=== PATIENT | male | born 1985 | race Caucasian/White ===

== ENCOUNTER 2016-07-16 03:12 | Emergency (ER) | payer BC, MEDICAID, OTHER ==
[2016-07-16] MEDS ORDERED: ONDANSETRON 4MG/2ML VIAL (J2405) As Ordered ONE (03:36)
[2016-07-16] MEDS ORDERED: MORPHINE 4 MG/ML 1ML SYRINGE As Ordered ONE (03:36)
[2016-07-16 03:46] LABS: BASO % 0.4 % (0.0-1.0); EOS # 0.1 K/mm3 (0.0-0.50); EOS % 1.1 % (0.0-3.0); LARGE UNSTAINED CELL # 0.2 K/mm3 (0.0-0.4); LARGE UNSTAINED CELL % 1.9 % (0.0-4.0); LYMPH # 1.2 K/mm3 (1.5-4.5); LYMPH % 10.5 % (24.0-44.0); MEAN CORPUSCULAR HEMOGLOBIN 28.9 pg (27.0-33.0); MEAN CORPUSCULAR HGB CONC 33.7 g/dl (32.0-36.5); MEAN CORPUSCULAR VOLUME 85.7 fl (80.0-96.0); MONO # 0.4 K/mm3 (0.0-0.8); MONO % 3.4 % (0.0-5.0); NEUTROPHILS # 9.3 K/mm3 (1.8-7.7); NEUTROPHILS % 82.6 % (36.0-66.0); PLATELET COUNT, AUTOMATED 292 k/mm3 (150-450); RED CELL DISTRIBUTION WIDTH 12.2 % (11.5-14.5); WHITE BLOOD COUNT 11.2 K/mm3 (4.0-10.0)
[2016-07-16 03:55] LABS: ALBUMIN 4.1 GM/DL (3.2-5.2); ALBUMIN/GLOBULIN RATIO 1.24 (1.00-1.93); ALKALINE PHOSPHATASE 78 U/L (45-117); ALT/SGPT 27 U/L (12-78); AMYLASE 41 U/L (25-115); ANION GAP 11 MEQ/L (8-16); AST/SGOT 13 U/L (15-37); BILIRUBIN,DIRECT < 0.1 MG/DL (0.0-0.2); BILIRUBIN,TOTAL 0.5 MG/DL (0.2-1.0); BLOOD UREA NITROGEN 15 MG/DL (7-18); CARBON DIOXIDE LEVEL 29 MEQ/L (21-32); CHLORIDE LEVEL 107 MEQ/L (98-107); CREATININE FOR GFR 1.43 MG/DL (0.70-1.30); GLOMERULAR FILTRATION RATE > 60.0 (>60); GLUCOSE, FASTING 144 MG/DL (70-105); POTASSIUM SERUM 3.8 MEQ/L (3.5-5.1); SODIUM LEVEL 147 MEQ/L (136-145); TOTAL PROTEIN 7.4 GM/DL (6.4-8.2)
[2016-07-16] MEDS ORDERED: ISOVUE-370 76% 100ML VIAL (Q9967) As Ordered ONE (04:09)
--- NOTE | 2016-07-16 05:20 | REPUSA ---
CLINICAL HISTORY: Abdominal pain. TECHNIQUE: Multiple axial, sagittal and coronal CT images were obtained through the abdomen and pelvi s after administration of intravenous contrast material. COMMENTS: The liver is of uniform attenuation without mass or defect. There is no intra or extrahepatic biliary ductal dilatation. The spleen is normal. The gallbladder is within normal limits. The pancreas is of normal contour and attenuation characteristics. There is no evidence of adrenal mass. Bilateral renal stones ranging in size between 3 and 6 mm. 4 mm obstructing calculus of the left uret erovesical junction. Mild left hydroureteronephrosis. No evidence for appendicitis. There is no bowel wall thickening. No evidence for small or large guru l obstruction. There is no evidence of abdominal ascites or lymphadenopathy. Mild diffuse thickening of the wall of the bladder. There is no evidence of intrinsic or extrinsic bladder mass. Mild thickening of the bladder. There is no pelvic ascites or lymphadenopathy. Mild large bowel fecal stasis. Images of the lung bases show no evidence of pleural or parenchymal mass. There are no pleural effusi ons. The bony structures are free of lytic or blastic lesions. Multilevel degenerative changes are seen in volving the thoracolumbar spine. Scattered calcifications are seen involving the aorta and major bran ches compatible with atherosclerosis. IMPRESSION: Bilateral nephrolithiasis. Obstructing calculus of the left ureterovesical junction. Mild thickening of the bladder. Thank you for your kind referral of this patient.
[2016-07-16] MEDS ORDERED: TAMSULOSIN 0.4 MG CAP As Ordered ONE (07:40)
[2016-07-16] MEDS ORDERED: OXYCODONE/APAP 5MG/325MG(BULK) 1 TAB TAB As Ordered ONE (07:41)
--- NOTE | 2016-07-16 07:58 | EDDOCDS ---
Nurse's Notes [facility] Name: Thomas Ndiaye Age: 30 yrs Sex: Male : 1985 Arrival Date: 07/16/2016 Time: 03:12 Bed 7 Private MD: NO PRIMARY PHYSICIAN, . Diagnosis: Calculus of ureter Presentation: 07/16 03:15 Presenting complaint: EMS states: onset of severe abdominal pain 3 hours ago, reports af2 constipation for a few days. Risk factors: the patient reports not having a history of previous torsion. Adult Sepsis Screening: The patient does not have new or worsening altered mentation. Patient has a respiratory rate of greater than or equal to 22 (1 point). Systolic blood pressure is greater than 100. Patient has a qSOFA score of 1- Negative Sepsis Screen. Suicide/Homicide risk assessment- the patient denies having any suicidal and/or homicidal ideations and does not present with any other emotional, behavioral or mental health complaints. Status: Patient is not a claim service representative or dependent. Transition of care: patient was not received from another setting of care. 03:15 Acuity: KHUSHBU Level 3 af2 03:15 Method Of Arrival: Ambulance af2 Triage Assessment: 03:43 General: Appears distressed, uncomfortable, Behavior is anxious. Pain: Location: af2 abdomen Pain currently is 10 out of 10 on a pain scale. Pt Declines HIV testing. GI: Abdomen is distended, Bowel sounds present X 4 quads. Abd is rigid X 4 quads. Derm: Skin is pink, warm & dry. Historical: - Allergies: No known drug Allergies; - Home Meds: 1. none - PMHx: none; - PSHx: none; - Social history: Smoking status: Patient states was never smoker of tobacco. No barriers to communication noted, The patient speaks fluent Polish. - Family history: Not pertinent. - : The pt / caregiver states he / she is not on anticoagulants. Home medication list is obtained from the patient. - Exposure Risk Screening:: None identified. Screenin:21 Screening information is obtained from the patient. Fall risk: No risks identified. af2 Assistance ADL's: requires no assistance with activities of daily living. Abuse/DV Screen: The patient / caregiver reports he/she is: not in a situation that causes fear, pain or injury. Nutritional screening: No deficits noted. Advance Directives: Currently, there is no health care proxy. home support is adequate. Assessment: 03:44 General: see triage note.. af2 04:45 General: Appears comfortable, Behavior is cooperative. Pain: Location: abdomen Pain af2 currently is 4 out of 10 on a pain scale. Neurological: Level of Consciousness is awake, alert, obeys commands. Respiratory: Airway is patent Respiratory effort is even, unlabored. GI: Abdomen is non- distended Bowel sounds present X 4 quads. Reports constipation, lower abdominal pain, upper abd pain. Derm: Skin is normal. 05:45 General: Appears in no apparent distress, comfortable, Behavior is appropriate for age, af2 cooperative. Neurological: Level of Consciousness is awake, alert, obeys commands, Oriented to person, place, time. Respiratory: Airway is patent Respiratory effort is even, unlabored. GI: Reports constipation, lower abdominal pain, upper abd pain. Derm: Skin is normal. 06:22 General: Appears in no apparent distress, comfortable, Behavior is appropriate for age, af2 cooperative, pt lying on stretcher resting quietly with eyes closed. rr even and unlabored. updated regarding need for urine specimen. . 07:29 General: Appears in no apparent distress, comfortable, Behavior is appropriate for age, ck1 cooperative. Pain: Denies pain. Neurological: Level of Consciousness is awake, alert, obeys commands, Oriented to person, place, time. Respiratory: Respiratory effort is even, unlabored, Respiratory pattern is regular, symmetrical. GI: Denies nausea, vomiting. Derm: Skin is pink, warm & dry. 07:50 General: Appears in no apparent distress, comfortable, Behavior is appropriate for age, ck1 cooperative. Pain: Denies pain. Neurological: Level of Consciousness is awake, alert, obeys commands, Oriented to person, place, time. Respiratory: No deficits noted. GI: No deficits noted. Denies nausea, vomiting. : Denies burning with urination, inability to void, urinary frequency. Derm: Skin is pink, warm & dry. Musculoskeletal: Circulation, motion, and sensation intact Range of motion intact in all extremities. Vital Signs: 03:18 BP 133 / 70; Pulse 74; Resp 20; Temp 96.2(O); Pulse Ox 97% on R/A; Weight 77.11 kg (R); jmv Height 5 ft. 6 in. (167.64 cm) (R); Pain 10/10; 06:24 BP 131 / 58; Pulse 61; Resp 18 S; Temp 97.5(O); Pulse Ox 100% on R/A; af2 07:48 BP 108 / 65; Pulse 94; Resp 18; Temp 96.8(T); Pulse Ox 98% on R/A; Pain 0/10; ck1 03:18 Body Mass Index 27.44 (77.11 kg, 167.64 cm) [facility] ED Course: 03:14 Shoshana Uribe,RN is Primary Nurse. [facility] 03:14 Patient visited by Paula Sarmiento, Tank Assembler. [facility] 03:14 NO PRIMARY PHYSICIAN, . is Private Physician. [facility] 03:14 Patient moved to [facility] 03:18 Triage Initiated af2 03:20 Pt greeted and oriented to ED. Patient advised of names of staff involved in care, [facility] location of call payne, wait times and NPO status. Patient has correct armband on for positive identification. Placed in gown. Bed in low position. Call light in reach. Side rails up X2. Pulse ox on. NIBP on. 03:21 Patient visited by Tyson Marcum PCA. [facility] 03:24 Dale Bravo DO is Attending Physician. mm11 03:24 Patient visited by Dale Bravo DO. mm11 03:26 Inserted saline lock: 20 gauge in left antecubital area and blood collected. lf1 03:31 Patient visited by Dale Bravo DO. mm11 03:33 Liver Profile Sent. af2 03:33 Lipase Sent. af2 03:33 CBC with Diff Sent. af2 03:33 Basic Metabolic Profile Sent. af2 03:33 Amylase Sent. af2 03:44 Patient visited by Shoshana Uribe RN. af2 03:44 The patient / caregiver is instructed regarding the plan of care and ED course. af2 04:34 Patient name changed from Thomas\S\R\S\Senthil\S\ to Thomas\S\Jean\S\Senthil. EDMS 04:35 [facility] [place] was scanned into [employer] and attached to record. [facility] 05:08 Patient visited by Shoshana Uribe RN. af2 05:46 CT ABD & PELVIS: IV Contrast Only Returned. EDMS 06:09 Patient visited by Shoshana Uribe RN. af2 06:23 Patient visited by Shoshana Uribe RN. af2 06:25 Patient visited by Shoshana Uribe RN. af2 06:55 Patient visited by Shoshana Uribe RN. af2 06:57 Oanh Ramirez,RN is Primary Nurse. ck1 07:15 Primary Nurse role handed off by Shoshana Uribe RN mcp 07:19 Patient visited by Nani Benjamin PCA. jlf 07:19 Urine Culture Sent. jlf 07:19 UA Sent. jlf 07:29 Patient visited by Oanh Ramirez,KEKE. ck1 07:30 No procedures done that require assistance. ck1 07:36 [facility] is Referral Physician. mm11 07:48 Discontinued lock intact, bleeding controlled, pressure dressing applied, No ck1 redness/swelling at site. Administered Medications: 03:41 Drug: NS 0.9% 1000 ml [sodium chloride 0.9 % intravenous solution] Route: IV; Rate: af2 bolus; Site: left antecubital; 07:34 Follow up: IV Status: Completed infusion ck1 03:42 Drug: Ondansetron 4 mg [ondansetron HCl 2 mg/mL intravenous solution (2 mL)] Route: af2 IVP; Site: left antecubital; 03:42 Drug: morphine 4 mg [morphine 4 mg/mL intravenous cartridge (1 mL)] Route: IVP; Site: af2 left antecubital; 07:47 Drug: Tamsulosin 0.4 mg [tamsulosin 0.4 mg capsule (1 caps)] Route: PO; ck1 07:47 Drug: oxyCODONE-acetaminophen 4 pack 1 packets [oxycodone-acetaminophen 5 mg-325 mg ck1 tablet (1 tabs)] {Co-Signature: mlb1 (Gaetano Merritt RN).} Route: PO; Order Results: Lab Order: Amylase; SPEC'M 07/16/16 03:28 Test: AMYLASE; Value: 41; Range: 25-115; Units: U/L; Status: F Lab Order: Basic Metabolic Profile; SPEC'M 07/16/16 03:28 Test: GLUCOSE, FASTING; Value: 144; Range: 70-105; Abnormal: Above high normal; Units: MG/DL; Status: F Test: BLOOD UREA NITROGEN; Value: 15; Range: 7-18; Units: MG/DL; Status: F Test: CREATININE FOR GFR; Value: 1.43; Range: 0.70-1.30; Abnormal: Above high normal; Units: MG/DL; Status: F Test: GLOMERULAR FILTRATION RATE; Value: > 60.0; Range: >60; Status: F Test: SODIUM LEVEL; Value: 147; Range: 136-145; Abnormal: Above high normal; Units: MEQ/L; Status: F Test: POTASSIUM SERUM; Value: 3.8; Range: 3.5-5.1; Units: MEQ/L; Status: F Test: CHLORIDE LEVEL; Value: 107; Range: 98-107; Units: MEQ/L; Status: F Test: CARBON DIOXIDE LEVEL; Value: 29; Range: 21-32; Units: MEQ/L; Status: F Test: ANION GAP; Value: 11; Range: 8-16; Units: MEQ/L; Status: F Test: CALCIUM LEVEL; Value: 9.0; Range: 8.5-10.1; Units: MG/DL; Status: F Test Note: ; Units are mL/min/1.73 m2 Chronic Kidney Disease Staging per NKF: Stage I & II GFR >=60 Normal to Mildly Decreased Stage III GFR 30-59 Moderately Decreased Stage IV GFR 15-29 Severely Decreased Stage V GFR <15 Very Little GFR Left ESRD GFR <15 on MAILING MANAGER Lab Order: CBC with Diff; SPEC'M 07/16/16 03:28 Test: WHITE BLOOD COUNT; Value: 11.2; Range: 4.0-10.0; Abnormal: Above high normal; Units: K/mm3; Status: F Test: RED BLOOD COUNT; Value: 5.08; Range: 4.30-6.10; Units: M/mm3; Status: F Test: HEMOGLOBIN; Value: 14.7; Range: 14.0-18.0; Units: g/dl; Status: F Test: HEMATOCRIT; Value: 43.6; Range: 42.0-52.0; Units: %; Status: F Test: MEAN CORPUSCULAR VOLUME; Value: 85.7; Range: 80.0-96.0; Units: fl; Status: F Test: MEAN CORPUSCULAR HEMOGLOBIN; Value: 28.9; Range: 27.0-33.0; Units: pg; Status: F Test: MEAN CORPUSCULAR HGB CONC; Value: 33.7; Range: 32.0-36.5; Units: g/dl; Status: F Test: RED CELL DISTRIBUTION WIDTH; Value: 12.2; Range: 11.5-14.5; Units: %; Status: F Test: PLATELET COUNT, AUTOMATED; Value: 292; Range: 150-450; Units: k/mm3; Status: F Test: NEUTROPHILS %; Value: 82.6; Range: 36.0-66.0; Abnormal: Above high normal; Units: %; Status: F Test: LYMPH %; Value: 10.5; Range: 24.0-44.0; Abnormal: Below low normal; Units: %; Status: F Test: MONO %; Value: 3.4; Range: 0.0-5.0; Units: %; Status: F Test: EOS %; Value: 1.1; Range: 0.0-3.0; Units: %; Status: F Test: BASO %; Value: 0.4; Range: 0.0-1.0; Units: %; Status: F Test: LARGE UNSTAINED CELL %; Value: 1.9; Range: 0.0-4.0; Units: %; Status: F Test: NEUTROPHILS #; Value: 9.3; Range: 1.8-7.7; Abnormal: Above high normal; Units: K/mm3; Status: F Test: LYMPH #; Value: 1.2; Range: 1.5-4.5; Abnormal: Below low normal; Units: K/mm3; Status: F Test: MONO #; Value: 0.4; Range: 0.0-0.8; Units: K/mm3; Status: F Test: EOS #; Value: 0.1; Range: 0.0-0.50; Units: K/mm3; Status: F Test: BASO #; Value: 0.0; Range: 0.0-0.2; Units: K/mm3; Status: F Test: LARGE UNSTAINED CELL #; Value: 0.2; Range: 0.0-0.4; Units: K/mm3; Status: F Lab Order: Lipase; SPEC'M 07/16/16 03:28 Test: LIPASE; Value: 145; Range: 73-393; Units: U/L; Status: F Lab Order: Liver Profile; SPEC'M 07/16/16 03:28 Test: AST/SGOT; Value: 13; Range: 15-37; Abnormal: Below low normal; Units: U/L; Status: F Test: ALT/SGPT; Value: 27; Range: 12-78; Units: U/L; Status: F Test: ALKALINE PHOSPHATASE; Value: 78; Range: 45-117; Units: U/L; Status: F Test: BILIRUBIN,TOTAL; Value: 0.5; Range: 0.2-1.0; Units: MG/DL; Status: F Test: BILIRUBIN,DIRECT; Value: < 0.1; Range: 0.0-0.2; Units: MG/DL; Status: F Test: TOTAL PROTEIN; Value: 7.4; Range: 6.4-8.2; Units: GM/DL; Status: F Test: ALBUMIN; Value: 4.1; Range: 3.2-5.2; Units: GM/DL; Status: F Test: ALBUMIN/GLOBULIN RATIO; Value: 1.24; Range: 1.00-1.93; Status: F Lab Order: UA; SPEC'M 07/16/16 07:17 Test: APPEARANCE, URINE; Value: CLEAR; Range: CLEAR; Status: F Test: COLOR, URINE; Value: STRAW; Range: YELLOW; Status: F Test: PH,URINE; Value: 7.0; Range: 5.0-9.0; Units: UNITS; Status: F Test: SPECIFIC GRAVITY URINE AUTO; Value: 1.035; Range: 1.002-1.035; Status: F Test: PROTEIN, URINE AUTO; Value: NEGATIVE; Range: NEGATIVE; Units: mg/dL; Status: F Test: GLUCOSE, URINE (UA) AUTO; Value: NEGATIVE; Range: NEGATIVE; Units: mg/dL; Status: F Test: KETONE, URINE AUTO; Value: NEGATIVE; Range: NEGATIVE; Units: mg/dL; Status: F Test: UROBILINOGEN, URINE AUTO; Value: 0.2; Range: 0.0-2.0; Units: mg/dL; Status: F Test: BILIRUBIN, URINE AUTO; Value: NEGATIVE; Range: NEGATIVE; Status: F Test: NITRITE, URINE AUTO; Value: NEGATIVE; Range: NEGATIVE; Status: F Test: LEUKOCYTE ESTERASE, URINE AUTO; Value: NEGATIVE; Range: NEGATIVE; Status: F Test: BLOOD, URINE BLOOD; Value: NEGATIVE; Range: NEGATIVE; Status: F Test: WBC, URINE AUTO; Value: 1; Range: 0-3; Units: /HPF; Status: F Test: RBC, URINE AUTO; Value: 2; Range: 0-3; Units: /HPF; Status: F Test: BACTERIA, URINE AUTO; Value: 1+; Range: NEGATIVE; Abnormal: Above high normal; Status: F Test: SQUAMOUS EPITHELIAL CELL UR AU; Value: 0; Range: 0-6; Units: /HPF; Status: F Test: HYALINE CAST, URINE AUTO; Value: 0; Range: 0-1; Units: /LPF; Status: F Radiology Order: CT ABD & PELVIS: IV Contrast Only Test: CT ABD & PELVIS: IV Contrast Only REASON FOR EXAMINATION: Abdomen Pain; ; CLINICAL HISTORY: Abdominal pain.; TECHNIQUE: Multiple axial, sagittal and coronal CT images were obtained through the abdomen and pelvi; s after administration of intravenous contrast material.; COMMENTS:; The liver is of uniform attenuation without mass or defect. There is no intra or extrahepatic biliary; ductal dilatation. The spleen is normal. The gallbladder is within normal limits. The pancreas is of; normal contour and attenuation characteristics. There is no evidence of adrenal mass.; Bilateral renal stones ranging in size between 3 and 6 mm. 4 mm obstructing calculus of the left uret; erovesical junction. Mild left hydroureteronephrosis.; No evidence for appendicitis. There is no bowel wall thickening. No evidence for small or large guru; l obstruction. There is no evidence of abdominal ascites or lymphadenopathy. Mild diffuse thickening; of the wall of the bladder.; There is no evidence of intrinsic or extrinsic bladder mass. Mild thickening of the bladder. There is; no pelvic ascites or lymphadenopathy. Mild large bowel fecal stasis.; Images of the lung bases show no evidence of pleural or parenchymal mass. There are no pleural effusi; ons.; The bony structures are free of lytic or blastic lesions. Multilevel degenerative changes are seen in; volving the thoracolumbar spine. Scattered calcifications are seen involving the aorta and major bran; ches compatible with atherosclerosis.; IMPRESSION:; Bilateral nephrolithiasis.; Obstructing calculus of the left ureterovesical junction.; Mild thickening of the bladder.; Thank you for your kind referral of this patient.; ; Outcome: 07:30 CT Study completed. ck1 07:36 Discharge ordered by Provider. mm11 07:47 Discharge Assessment: Patient awake, alert and oriented x 3. No cognitive and/or ck1 functional deficits noted. Patient verbalized understanding of disposition instructions. patient administered narcotics - yes. Pt provided with safe discharge. The following High Risk Discharge criteria are identified: None. Discharged to home ambulatory, with parent. Condition: improved. Discharge instructions given to patient, Instructed on discharge instructions, follow up and referral plans. medication usage, Demonstrated understanding of instructions, medications, Pt was receptive of discharge instructions/ teaching. Property :Personal belongings accompany Pt. 07:50 Prescriptions given X 2. ck1 07:56 Patient left the ED. ck1 Signatures: Dispatcher [employer] EDMS Larissa James, RN KEKE [facility] Oanh RamirezRN RN ck1 Zahida Avalos,RN RN lf1 Dale Bravo, DO mm11 Nani Benjamin, PSYCHIATRIC REGISTERED NURSE PSYCHIATRIC REGISTERED NURSE jlf Paula Sarmiento, Tank Assembler Unit Bharati Lees AmberRN RN af2 Tyson Marcum, PSYCHIATRIC REGISTERED NURSE PSYCHIATRIC REGISTERED NURSE [facility] Gaetano Merritt RN mlb1 MTDD
--- NOTE | 2016-07-16 07:58 | EDDOCDS ---
Physician Documentation [facility] Name: Thomas Ndiaye Age: 30 yrs Sex: Male : 1985 Arrival Date: 07/16/2016 Time: 03:12 Bed 7 Private MD: NO PRIMARY PHYSICIAN, . Disposition: 07/16/16 07:36 Discharged to Home/Self Care. Impression: Calculus of ureter. - Condition is Stable. - Discharge Instructions: Kidney Stones, Ureteral Colic, Ureteral Colic, Ydmo-lo-Soye, Kidney Stones, Ynnw-mc-Lism. - Prescriptions for Percocet 5- 325 mg Oral Tablet - take 1 tablet by ORAL route every 6 hours As needed MDD: 4 tabs; 20 tablet. Flomax 0.4 mg Oral Capsule, Sust. Release 24 hr - take 1 capsule by ORAL route once daily 1/2 hour following the same meal each day; 30 capsule. - Medication Reconciliation, Local Pharmacy Hours form. - Follow up: [facility]; When: Call to arrange an appointment; Reason: To establish care. - Problem is an acute exacerbation. - Symptoms have improved. Historical: - Allergies: No known drug Allergies; - Home Meds: 1. none - PMHx: none; - PSHx: none; - Social history: Smoking status: Patient states was never smoker of tobacco. No barriers to communication noted, The patient speaks fluent Yi. - Family history: Not pertinent. - : The pt / caregiver states he / she is not on anticoagulants. Home medication list is obtained from the patient. - Exposure Risk Screening:: None identified. Vital Signs: 07/16 03:18 BP 133 / 70; Pulse 74; Resp 20; Temp 96.2(O); Pulse Ox 97% on R/A; Weight 77.11 kg / jmv 170 lbs (R); Height 5 ft. 6 in. (167.64 cm) (R); Pain 10/10; 06:24 BP 131 / 58; Pulse 61; Resp 18 S; Temp 97.5(O); Pulse Ox 100% on R/A; af2 07:48 BP 108 / 65; Pulse 94; Resp 18; Temp 96.8(T); Pulse Ox 98% on R/A; Pain 0/10; ck1 03:18 Body Mass Index 27.44 (77.11 kg, 167.64 cm) [facility] MDM: 03:31 NS 0.9% 1000 ml IV at bolus once ordered. mm11 03:31 Ondansetron 4 mg IVP once ordered. mm11 03:31 morphine 4 mg IVP every 30 minutes; Document pain score/vitals after each dose (Hold if mm11 SBP < 90mmHg) x2 ordered. 03:31 IV Saline Lock ordered. mm11 03:31 Undress patient appropriately for examination ordered. mm11 03:33 Amylase Ordered. EDMS 03:33 Basic Metabolic Profile Ordered. EDMS 03:33 CBC with Diff Ordered. EDMS 03:33 Lipase Ordered. EDMS 03:33 Liver Profile Ordered. EDMS 03:33 NOTHING BY MOUTH+DIET ordered. EDMS 03:51 Financial registration complete. h 04:01 Basic Metabolic Profile Reviewed. mm11 04:01 CBC with Diff Reviewed. mm11 04:01 Liver Profile Reviewed. mm11 04:01 Amylase Reviewed. mm11 04:01 Lipase Reviewed. mm11 04:01 CT ABD & PELVIS: IV Contrast Only Ordered. EDMS 04:35 [facility] [place] Agreement was scanned into [employer] and attached to record. [facility] 04:43 UA Ordered. EDMS 05:29 Urine Culture Ordered. EDMS 07:35 UA Reviewed. mm11 07:35 CT ABD & PELVIS: IV Contrast Only Reviewed. mm11 07:36 Tamsulosin Extended Release 24 hour Capsule 0.4 mg PO once ordered. mm11 07:36 oxyCODONE-acetaminophen 4 pack 5 mg-325 mg 1 packets PO once; Dispense with pt, take as mm11 per instruction on package ordered. Administered Medications: 03:41 Drug: NS 0.9% 1000 ml [sodium chloride 0.9 % intravenous solution] Route: IV; Rate: af2 bolus; Site: left antecubital; 07:34 Follow up: IV Status: Completed infusion ck1 03:42 Drug: Ondansetron 4 mg [ondansetron HCl 2 mg/mL intravenous solution (2 mL)] Route: af2 IVP; Site: left antecubital; 03:42 Drug: morphine 4 mg [morphine 4 mg/mL intravenous cartridge (1 mL)] Route: IVP; Site: af2 left antecubital; 07:47 Drug: Tamsulosin 0.4 mg [tamsulosin 0.4 mg capsule (1 caps)] Route: PO; ck1 07:47 Drug: oxyCODONE-acetaminophen 4 pack 1 packets [oxycodone-acetaminophen 5 mg-325 mg ck1 tablet (1 tabs)] {Co-Signature: mlb1 (Gaetano Merritt RN).} Route: PO; Signatures: Dispatcher [employer] Oanh Carlisle RN RN ck1 Dale Bravo, DO mm11 Bharati Gong Amber, RN RN af2 Gaetano Merritt RN mlb1 The chart was reviewed and I authenticate all verbal orders and agree with the evaluation and treatment provided.Attachments: 04:35 [facility] Payment Agreement [facility] MTDD
--- NOTE | 2016-07-18 08:57 | EDDOCDS ---
Nurse's Notes [facility] Name: Thomas Ndiaye Age: 30 yrs Sex: Male : 1985 Arrival Date: 07/16/2016 Time: 03:12 Bed 7 Private MD: NO PRIMARY PHYSICIAN, . Diagnosis: Calculus of ureter Presentation: 07/16 03:15 Presenting complaint: EMS states: onset of severe abdominal pain 3 hours ago, reports af2 constipation for a few days. Risk factors: the patient reports not having a history of previous torsion. Adult Sepsis Screening: The patient does not have new or worsening altered mentation. Patient has a respiratory rate of greater than or equal to 22 (1 point). Systolic blood pressure is greater than 100. Patient has a qSOFA score of 1- Negative Sepsis Screen. Suicide/Homicide risk assessment- the patient denies having any suicidal and/or homicidal ideations and does not present with any other emotional, behavioral or mental health complaints. Status: Patient is not a creative services writer or dependent. Transition of care: patient was not received from another setting of care. 03:15 Acuity: KHUSHBU Level 3 af2 03:15 Method Of Arrival: Ambulance af2 Triage Assessment: 03:43 General: Appears distressed, uncomfortable, Behavior is anxious. Pain: Location: af2 abdomen Pain currently is 10 out of 10 on a pain scale. Pt Declines HIV testing. GI: Abdomen is distended, Bowel sounds present X 4 quads. Abd is rigid X 4 quads. Derm: Skin is pink, warm & dry. Historical: - Allergies: No known drug Allergies; - Home Meds: 1. none - PMHx: none; - PSHx: none; - Social history: Smoking status: Patient states was never smoker of tobacco. No barriers to communication noted, The patient speaks fluent Omani. - Family history: Not pertinent. - : The pt / caregiver states he / she is not on anticoagulants. Home medication list is obtained from the patient. - Exposure Risk Screening:: None identified. Screenin:21 Screening information is obtained from the patient. Fall risk: No risks identified. af2 Assistance ADL's: requires no assistance with activities of daily living. Abuse/DV Screen: The patient / caregiver reports he/she is: not in a situation that causes fear, pain or injury. Nutritional screening: No deficits noted. Advance Directives: Currently, there is no health care proxy. home support is adequate. Assessment: 03:44 General: see triage note.. af2 04:45 General: Appears comfortable, Behavior is cooperative. Pain: Location: abdomen Pain af2 currently is 4 out of 10 on a pain scale. Neurological: Level of Consciousness is awake, alert, obeys commands. Respiratory: Airway is patent Respiratory effort is even, unlabored. GI: Abdomen is non- distended Bowel sounds present X 4 quads. Reports constipation, lower abdominal pain, upper abd pain. Derm: Skin is normal. 05:45 General: Appears in no apparent distress, comfortable, Behavior is appropriate for age, af2 cooperative. Neurological: Level of Consciousness is awake, alert, obeys commands, Oriented to person, place, time. Respiratory: Airway is patent Respiratory effort is even, unlabored. GI: Reports constipation, lower abdominal pain, upper abd pain. Derm: Skin is normal. 06:22 General: Appears in no apparent distress, comfortable, Behavior is appropriate for age, af2 cooperative, pt lying on stretcher resting quietly with eyes closed. rr even and unlabored. updated regarding need for urine specimen. . 07:29 General: Appears in no apparent distress, comfortable, Behavior is appropriate for age, ck1 cooperative. Pain: Denies pain. Neurological: Level of Consciousness is awake, alert, obeys commands, Oriented to person, place, time. Respiratory: Respiratory effort is even, unlabored, Respiratory pattern is regular, symmetrical. GI: Denies nausea, vomiting. Derm: Skin is pink, warm & dry. 07:50 General: Appears in no apparent distress, comfortable, Behavior is appropriate for age, ck1 cooperative. Pain: Denies pain. Neurological: Level of Consciousness is awake, alert, obeys commands, Oriented to person, place, time. Respiratory: No deficits noted. GI: No deficits noted. Denies nausea, vomiting. : Denies burning with urination, inability to void, urinary frequency. Derm: Skin is pink, warm & dry. Musculoskeletal: Circulation, motion, and sensation intact Range of motion intact in all extremities. Vital Signs: 03:18 BP 133 / 70; Pulse 74; Resp 20; Temp 96.2(O); Pulse Ox 97% on R/A; Weight 77.11 kg (R); jmv Height 5 ft. 6 in. (167.64 cm) (R); Pain 10/10; 06:24 BP 131 / 58; Pulse 61; Resp 18 S; Temp 97.5(O); Pulse Ox 100% on R/A; af2 07:48 BP 108 / 65; Pulse 94; Resp 18; Temp 96.8(T); Pulse Ox 98% on R/A; Pain 0/10; ck1 03:18 Body Mass Index 27.44 (77.11 kg, 167.64 cm) [facility] ED Course: 03:14 Shoshana Uribe,RN is Primary Nurse. [facility] 03:14 Patient visited by Paula Sarmiento, Stem Assembler. [facility] 03:14 NO PRIMARY PHYSICIAN, . is Private Physician. [facility] 03:14 [facility]18 Triage Initiated af2 03:20 Pt greeted and oriented to ED. Patient advised of names of staff involved in care, [facility] location of call pay[place], wait times and NPO status. Patient has correct armband on for positive identification. Placed in gown. Bed in low position. Call light in reach. Side rails up X2. Pulse ox on. NIBP on. 03:21 Patient visited by Tyson Marcum PCA. [facility] 03:24 Dale Bravo DO is Attending Physician. mm11 03:24 Patient visited by Dale Bravo DO. mm11 03:26 Inserted saline lock: 20 gauge in left antecubital area and blood collected. lf1 03:31 Patient visited by Dale Bravo DO. mm11 03:33 Liver Profile Sent. af2 03:33 Lipase Sent. af2 03:33 CBC with Diff Sent. af2 03:33 Basic Metabolic Profile Sent. af2 03:33 Amylase Sent. af2 03:44 Patient visited by Shoshana Uribe RN. af2 03:44 The patient / caregiver is instructed regarding the plan of care and ED course. af2 04:34 Patient name changed from Thomas\S\R\S\Senthil\S\ to Thomas\S\Jean\S\Senthil. EDMS 04:35 [facility] Payment Agreement was scanned into [employer] and attached to record. [facility] 05:08 Patient visited by Shoshana Uribe RN. af2 05:46 CT ABD & PELVIS: IV Contrast Only Returned. EDMS 06:09 Patient visited by Shoshana Uribe RN. af2 06:23 Patient visited by Shoshana Uribe RN. af2 06:25 Patient visited by Shoshana Uribe RN. af2 06:55 Patient visited by Shoshana Uribe RN. af2 06:57 Oanh Ramirez,RN is Primary Nurse. ck1 07:15 Primary Nurse role handed off by Shoshana Uribe RN mcp 07:19 Patient visited by Nani Benjamin PCA. jlf 07:19 Urine Culture Sent. jlf 07:19 UA Sent. jlf 07:29 Patient visited by Oanh Ramirez,KEKE. ck1 07:30 No procedures done that require assistance. ck1 07:36 [facility] is Referral Physician. mm11 07:48 Discontinued lock intact, bleeding controlled, pressure dressing applied, No ck1 redness/swelling at site. 14:36 T-Sheet-- Draft Copy was scanned into [employer] and attached to record. gb Administered Medications: 03:41 Drug: NS 0.9% 1000 ml [sodium chloride 0.9 % intravenous solution] Route: IV; Rate: af2 bolus; Site: left antecubital; 07:34 Follow up: IV Status: Completed infusion ck1 03:42 Drug: Ondansetron 4 mg [ondansetron HCl 2 mg/mL intravenous solution (2 mL)] Route: af2 IVP; Site: left antecubital; 03:42 Drug: morphine 4 mg [morphine 4 mg/mL intravenous cartridge (1 mL)] Route: IVP; Site: af2 left antecubital; 07:47 Drug: Tamsulosin 0.4 mg [tamsulosin 0.4 mg capsule (1 caps)] Route: PO; ck1 07:47 Drug: oxyCODONE-acetaminophen 4 pack 1 packets [oxycodone-acetaminophen 5 mg-325 mg ck1 tablet (1 tabs)] {Co-Signature: mlb1 (Gaetano Merritt RN).} Route: PO; Order Results: Lab Order: Amylase; SPEC'M 07/16/16 03:28 Test: AMYLASE; Value: 41; Range: 25-115; Units: U/L; Status: F Lab Order: Basic Metabolic Profile; SPEC'M 07/16/16 03:28 Test: GLUCOSE, FASTING; Value: 144; Range: 70-105; Abnormal: Above high normal; Units: MG/DL; Status: F Test: BLOOD UREA NITROGEN; Value: 15; Range: 7-18; Units: MG/DL; Status: F Test: CREATININE FOR GFR; Value: 1.43; Range: 0.70-1.30; Abnormal: Above high normal; Units: MG/DL; Status: F Test: GLOMERULAR FILTRATION RATE; Value: > 60.0; Range: >60; Status: F Test: SODIUM LEVEL; Value: 147; Range: 136-145; Abnormal: Above high normal; Units: MEQ/L; Status: F Test: POTASSIUM SERUM; Value: 3.8; Range: 3.5-5.1; Units: MEQ/L; Status: F Test: CHLORIDE LEVEL; Value: 107; Range: 98-107; Units: MEQ/L; Status: F Test: CARBON DIOXIDE LEVEL; Value: 29; Range: 21-32; Units: MEQ/L; Status: F Test: ANION GAP; Value: 11; Range: 8-16; Units: MEQ/L; Status: F Test: CALCIUM LEVEL; Value: 9.0; Range: 8.5-10.1; Units: MG/DL; Status: F Test Note: ; Units are mL/min/1.73 m2 Chronic Kidney Disease Staging per NKF: Stage I & II GFR >=60 Normal to Mildly Decreased Stage III GFR 30-59 Moderately Decreased Stage IV GFR 15-29 Severely Decreased Stage V GFR <15 Very Little GFR Left ESRD GFR <15 on CAFETERIA COUNTER ATTENDANT Lab Order: CBC with Diff; SPEC'M 07/16/16 03:28 Test: WHITE BLOOD COUNT; Value: 11.2; Range: 4.0-10.0; Abnormal: Above high normal; Units: K/mm3; Status: F Test: RED BLOOD COUNT; Value: 5.08; Range: 4.30-6.10; Units: M/mm3; Status: F Test: HEMOGLOBIN; Value: 14.7; Range: 14.0-18.0; Units: g/dl; Status: F Test: HEMATOCRIT; Value: 43.6; Range: 42.0-52.0; Units: %; Status: F Test: MEAN CORPUSCULAR VOLUME; Value: 85.7; Range: 80.0-96.0; Units: fl; Status: F Test: MEAN CORPUSCULAR HEMOGLOBIN; Value: 28.9; Range: 27.0-33.0; Units: pg; Status: F Test: MEAN CORPUSCULAR HGB CONC; Value: 33.7; Range: 32.0-36.5; Units: g/dl; Status: F Test: RED CELL DISTRIBUTION WIDTH; Value: 12.2; Range: 11.5-14.5; Units: %; Status: F Test: PLATELET COUNT, AUTOMATED; Value: 292; Range: 150-450; Units: k/mm3; Status: F Test: NEUTROPHILS %; Value: 82.6; Range: 36.0-66.0; Abnormal: Above high normal; Units: %; Status: F Test: LYMPH %; Value: 10.5; Range: 24.0-44.0; Abnormal: Below low normal; Units: %; Status: F Test: MONO %; Value: 3.4; Range: 0.0-5.0; Units: %; Status: F Test: EOS %; Value: 1.1; Range: 0.0-3.0; Units: %; Status: F Test: BASO %; Value: 0.4; Range: 0.0-1.0; Units: %; Status: F Test: LARGE UNSTAINED CELL %; Value: 1.9; Range: 0.0-4.0; Units: %; Status: F Test: NEUTROPHILS #; Value: 9.3; Range: 1.8-7.7; Abnormal: Above high normal; Units: K/mm3; Status: F Test: LYMPH #; Value: 1.2; Range: 1.5-4.5; Abnormal: Below low normal; Units: K/mm3; Status: F Test: MONO #; Value: 0.4; Range: 0.0-0.8; Units: K/mm3; Status: F Test: EOS #; Value: 0.1; Range: 0.0-0.50; Units: K/mm3; Status: F Test: BASO #; Value: 0.0; Range: 0.0-0.2; Units: K/mm3; Status: F Test: LARGE UNSTAINED CELL #; Value: 0.2; Range: 0.0-0.4; Units: K/mm3; Status: F Lab Order: Lipase; SPEC'M 07/16/16 03:28 Test: LIPASE; Value: 145; Range: 73-393; Units: U/L; Status: F Lab Order: Liver Profile; SPEC'M 07/16/16 03:28 Test: AST/SGOT; Value: 13; Range: 15-37; Abnormal: Below low normal; Units: U/L; Status: F Test: ALT/SGPT; Value: 27; Range: 12-78; Units: U/L; Status: F Test: ALKALINE PHOSPHATASE; Value: 78; Range: 45-117; Units: U/L; Status: F Test: BILIRUBIN,TOTAL; Value: 0.5; Range: 0.2-1.0; Units: MG/DL; Status: F Test: BILIRUBIN,DIRECT; Value: < 0.1; Range: 0.0-0.2; Units: MG/DL; Status: F Test: TOTAL PROTEIN; Value: 7.4; Range: 6.4-8.2; Units: GM/DL; Status: F Test: ALBUMIN; Value: 4.1; Range: 3.2-5.2; Units: GM/DL; Status: F Test: ALBUMIN/GLOBULIN RATIO; Value: 1.24; Range: 1.00-1.93; Status: F Lab Order: UA; SPEC'M 07/16/16 07:17 Test: APPEARANCE, URINE; Value: CLEAR; Range: CLEAR; Status: F Test: COLOR, URINE; Value: STRAW; Range: YELLOW; Status: F Test: PH,URINE; Value: 7.0; Range: 5.0-9.0; Units: UNITS; Status: F Test: SPECIFIC GRAVITY URINE AUTO; Value: 1.035; Range: 1.002-1.035; Status: F Test: PROTEIN, URINE AUTO; Value: NEGATIVE; Range: NEGATIVE; Units: mg/dL; Status: F Test: GLUCOSE, URINE (UA) AUTO; Value: NEGATIVE; Range: NEGATIVE; Units: mg/dL; Status: F Test: KETONE, URINE AUTO; Value: NEGATIVE; Range: NEGATIVE; Units: mg/dL; Status: F Test: UROBILINOGEN, URINE AUTO; Value: 0.2; Range: 0.0-2.0; Units: mg/dL; Status: F Test: BILIRUBIN, URINE AUTO; Value: NEGATIVE; Range: NEGATIVE; Status: F Test: NITRITE, URINE AUTO; Value: NEGATIVE; Range: NEGATIVE; Status: F Test: LEUKOCYTE ESTERASE, URINE AUTO; Value: NEGATIVE; Range: NEGATIVE; Status: F Test: BLOOD, URINE BLOOD; Value: NEGATIVE; Range: NEGATIVE; Status: F Test: WBC, URINE AUTO; Value: 1; Range: 0-3; Units: /HPF; Status: F Test: RBC, URINE AUTO; Value: 2; Range: 0-3; Units: /HPF; Status: F Test: BACTERIA, URINE AUTO; Value: 1+; Range: NEGATIVE; Abnormal: Above high normal; Status: F Test: SQUAMOUS EPITHELIAL CELL UR AU; Value: 0; Range: 0-6; Units: /HPF; Status: F Test: HYALINE CAST, URINE AUTO; Value: 0; Range: 0-1; Units: /LPF; Status: F Lab Order: Urine Culture; SPEC'M 07/16/16 07:17 Test: URINE CULTURE; Value: URINE CULTURE RESULT NO GROWTH; Status: F Radiology Order: CT ABD & PELVIS: IV Contrast Only Test: CT ABD & PELVIS: IV Contrast Only REASON FOR EXAMINATION: Abdomen Pain; ; CLINICAL HISTORY: Abdominal pain.; TECHNIQUE: Multiple axial, sagittal and coronal CT images were obtained through the abdomen and pelvi; s after administration of intravenous contrast material.; COMMENTS:; The liver is of uniform attenuation without mass or defect. There is no intra or extrahepatic biliary; ductal dilatation. The spleen is normal. The gallbladder is within normal limits. The pancreas is of; normal contour and attenuation characteristics. There is no evidence of adrenal mass.; Bilateral renal stones ranging in size between 3 and 6 mm. 4 mm obstructing calculus of the left uret; erovesical junction. Mild left hydroureteronephrosis.; No evidence for appendicitis. There is no bowel wall thickening. No evidence for small or large guru; l obstruction. There is no evidence of abdominal ascites or lymphadenopathy. Mild diffuse thickening; of the wall of the bladder.; There is no evidence of intrinsic or extrinsic bladder mass. Mild thickening of the bladder. There is; no pelvic ascites or lymphadenopathy. Mild large bowel fecal stasis.; Images of the lung bases show no evidence of pleural or parenchymal mass. There are no pleural effusi; ons.; The bony structures are free of lytic or blastic lesions. Multilevel degenerative changes are seen in; volving the thoracolumbar spine. Scattered calcifications are seen involving the aorta and major bran; ches compatible with atherosclerosis.; IMPRESSION:; Bilateral nephrolithiasis.; Obstructing calculus of the left ureterovesical junction.; Mild thickening of the bladder.; Thank you for your kind referral of this patient.; ; Outcome: 07:30 CT Study completed. ck1 07:36 Discharge ordered by Provider. mm11 07:47 Discharge Assessment: Patient awake, alert and oriented x 3. No cognitive and/or ck1 functional deficits noted. Patient verbalized understanding of disposition instructions. patient administered narcotics - yes. Pt provided with safe discharge. The following High Risk Discharge criteria are identified: None. Discharged to home ambulatory, with parent. Condition: improved. Discharge instructions given to patient, Instructed on discharge instructions, follow up and referral plans. medication usage, Demonstrated understanding of instructions, medications, Pt was receptive of discharge instructions/ teaching. Property :Personal belongings accompany Pt. 07:50 Prescriptions given X 2. ck1 07:56 Patient left the ED. ck1 Signatures: Dispatcher [employer] EDMS Larissa James, RN RN Arti Spence, Reg Reg Oanh Ramirez RN RN ck1 Zahida AvalosRN RN lf1 Dale Bravo, DO DO mm11 Nani Benjamin, STORY EDITOR STORY EDITOR jlf Paula Sarmiento, Stem Assembler Unit Bharati Lees AmberRN RN af2 Tyson Marcum, STORY EDITOR STORY EDITOR jmv Gaetano Merritt RN mlb1 Chart Complete MTDD
--- NOTE | 2016-07-18 08:57 | EDDOCDS ---
Physician Documentation [facility] [place] Name: Thomas Ndiaye Age: 30 yrs Sex: Male : 1985 Arrival Date: 07/16/2016 Time: 03:12 Bed 7 Private MD: NO PRIMARY PHYSICIAN, . Disposition: 07/16/16 07:36 Discharged to Home/Self Care. Impression: Calculus of ureter. - Condition is Stable. - Discharge Instructions: Kidney Stones, Ureteral Colic, Ureteral Colic, [id number], Kidney Stones, [id number]. - Prescriptions for Percocet 5- 325 mg Oral Tablet - take 1 tablet by ORAL route every 6 hours As needed MDD: 4 tabs; 20 tablet. Flomax 0.4 mg Oral Capsule, Sust. Release 24 hr - take 1 capsule by ORAL route once daily 1/2 hour following the same meal each day; 30 capsule. - Medication Reconciliation, Local Pharmacy Hours form. - [facility] up[facility]; When: Call to arrange an appointment; Reason: To establish care. - Problem is an acute exacerbation. - Symptoms have improved. Historical: - Allergies: No known drug Allergies; - Home Meds: 1. none - PMHx: none; - PSHx: none; - Social history: Smoking status: Patient states was never smoker of tobacco. No barriers to communication noted, The patient speaks fluent Lao. - Family history: Not pertinent. - : The pt / caregiver states he / she is not on anticoagulants. Home medication list is obtained from the patient. - Exposure Risk Screening:: None identified. Vital Signs: 07/16 03:18 BP 133 / 70; Pulse 74; Resp 20; Temp 96.2(O); Pulse Ox 97% on R/A; Weight 77.11 kg / jmv 170 lbs (R); Height 5 ft. 6 in. (167.64 cm) (R); Pain 10/10; 06:24 BP 131 / 58; Pulse 61; Resp 18 S; Temp 97.5(O); Pulse Ox 100% on R/A; af2 07:48 BP 108 / 65; Pulse 94; Resp 18; Temp 96.8(T); Pulse Ox 98% on R/A; Pain 0/10; ck1 03:18 Body Mass Index 27.44 (77.11 kg, 167.64 cm) [facility] MDM: 03:31 NS 0.9% 1000 ml IV at bolus once ordered. mm11 03:31 Ondansetron 4 mg IVP once ordered. mm11 03:31 morphine 4 mg IVP every 30 minutes; Document pain score/vitals after each dose (Hold if mm11 SBP < 90mmHg) x2 ordered. 03:31 IV Saline Lock ordered. mm11 03:31 Undress patient appropriately for examination ordered. mm11 03:33 Amylase Ordered. EDMS 03:33 Basic Metabolic Profile Ordered. EDMS 03:33 CBC with Diff Ordered. EDMS 03:33 Lipase Ordered. EDMS 03:33 Liver Profile Ordered. EDMS 03:33 NOTHING BY MOUTH+DIET ordered. EDMS 03:51 Financial registration complete. h 04:01 Basic Metabolic Profile Reviewed. mm11 04:01 CBC with Diff Reviewed. mm11 04:01 Liver Profile Reviewed. mm11 04:01 Amylase Reviewed. mm11 04:01 Lipase Reviewed. mm11 04:01 CT ABD & PELVIS: IV Contrast Only Ordered. EDMS 04:35 [facility] Payment Agreement was scanned into [employer] and attached to record. [facility] 04:43 UA Ordered. EDMS 05:29 Urine Culture Ordered. EDMS 07:35 UA Reviewed. mm11 07:35 CT ABD & PELVIS: IV Contrast Only Reviewed. mm11 07:36 Tamsulosin Extended Release 24 hour Capsule 0.4 mg PO once ordered. mm11 07:36 oxyCODONE-acetaminophen 4 pack 5 mg-325 mg 1 packets PO once; Dispense with pt, take as mm11 per instruction on package ordered. 14:36 T-Sheet-- Draft Copy was scanned into [employer] and attached to record. gb Administered Medications: 03:41 Drug: NS 0.9% 1000 ml [sodium chloride 0.9 % intravenous solution] Route: IV; Rate: af2 bolus; Site: left antecubital; 07:34 Follow up: IV Status: Completed infusion ck1 03:42 Drug: Ondansetron 4 mg [ondansetron HCl 2 mg/mL intravenous solution (2 mL)] Route: af2 IVP; Site: left antecubital; 03:42 Drug: morphine 4 mg [morphine 4 mg/mL intravenous cartridge (1 mL)] Route: IVP; Site: af2 left antecubital; 07:47 Drug: Tamsulosin 0.4 mg [tamsulosin 0.4 mg capsule (1 caps)] Route: PO; ck1 07:47 Drug: oxyCODONE-acetaminophen 4 pack 1 packets [oxycodone-acetaminophen 5 mg-325 mg ck1 tablet (1 tabs)] {Co-Signature: mlb1 (Gaetano Merritt RN).} Route: PO; Signatures: Dispatcher [employer] EDArti Roman, Reg Reg gb Oanh Ramirez,RN RN ck1 Dale Bravo DO DO mm11 Bharati Gong [facility] Shoshana UribeRN RN af2 Gaetano Merritt RN mlb1 The chart was reviewed and I authenticate all verbal orders and agree with the evaluation and treatment provided.Attachments: 04:35 [facility] Payment Agreement [facility] 14:36 T-Sheet-- Draft Copy Chart Complete MTDD
--- NOTE | 2016-07-18 08:57 | EDDOCDS ---
Physician Documentation [facility] Name: Thomas Ndiaye Age: 30 yrs Sex: Male : 1985 Arrival Date: 07/16/2016 Time: 03:12 Bed 7 Private MD: NO PRIMARY PHYSICIAN, . Disposition: 07/16/16 07:36 Discharged to Home/Self Care. Impression: Calculus of ureter. - Condition is Stable. - Discharge Instructions: Kidney Stones, Ureteral Colic, Ureteral Colic, [id number], Kidney Stones, [id number]. - Prescriptions for Percocet 5- 325 mg Oral Tablet - take 1 tablet by ORAL route every 6 hours As needed MDD: 4 tabs; 20 tablet. Flomax 0.4 mg Oral Capsule, Sust. Release 24 hr - take 1 capsule by ORAL route once daily 1/2 hour following the same meal each day; 30 capsule. - Medication Reconciliation, Local Pharmacy Hours form. - [facility]; When: Call to arrange an appointment; Reason: To establish care. - Problem is an acute exacerbation. - Symptoms have improved. Historical: - Allergies: No known drug Allergies; - Home Meds: 1. none - PMHx: none; - PSHx: none; - Social history: Smoking status: Patient states was never smoker of tobacco. No barriers to communication noted, The patient speaks fluent [place]. - Family history: Not pertinent. - : The pt / caregiver states he / she is not on anticoagulants. Home medication list is obtained from the patient. - Exposure Risk Screening:: None identified. Vital Signs: 07/16 03:18 BP 133 / 70; Pulse 74; Resp 20; Temp 96.2(O); Pulse Ox 97% on R/A; Weight 77.11 kg / jmv 170 lbs (R); Height 5 ft. 6 in. (167.64 cm) (R); Pain 10/10; 06:24 BP 131 / 58; Pulse 61; Resp 18 S; Temp 97.5(O); Pulse Ox 100% on R/A; af2 07:48 BP 108 / 65; Pulse 94; Resp 18; Temp 96.8(T); Pulse Ox 98% on R/A; Pain 0/10; ck1 03:18 Body Mass Index 27.44 (77.11 kg, 167.64 cm) [facility] MDM: 03:31 NS 0.9% 1000 ml IV at bolus once ordered. mm11 03:31 Ondansetron 4 mg IVP once ordered. mm11 03:31 morphine 4 mg IVP every 30 minutes; Document pain score/vitals after each dose (Hold if mm11 SBP < 90mmHg) x2 ordered. 03:31 IV Saline Lock ordered. mm11 03:31 Undress patient appropriately for examination ordered. mm11 03:33 Amylase Ordered. EDMS 03:33 Basic Metabolic Profile Ordered. EDMS 03:33 CBC with Diff Ordered. EDMS 03:33 Lipase Ordered. EDMS 03:33 Liver Profile Ordered. EDMS 03:33 NOTHING BY MOUTH+DIET ordered. EDMS 03:51 Financial registration complete. h 04:01 Basic Metabolic Profile Reviewed. mm11 04:01 CBC with Diff Reviewed. mm11 04:01 Liver Profile Reviewed. mm11 04:01 Amylase Reviewed. mm11 04:01 Lipase Reviewed. mm11 04:01 CT ABD & PELVIS: IV Contrast Only Ordered. EDMS 04:35 [facility] Payment Agreement was scanned into [employer] and attached to record. [facility] 04:43 UA Ordered. EDMS 05:29 Urine Culture Ordered. EDMS 07:35 UA Reviewed. mm11 07:35 CT ABD & PELVIS: IV Contrast Only Reviewed. mm11 07:36 Tamsulosin Extended Release 24 hour Capsule 0.4 mg PO once ordered. mm11 07:36 oxyCODONE-acetaminophen 4 pack 5 mg-325 mg 1 packets PO once; Dispense with pt, take as mm11 per instruction on package ordered. 14:36 T-Sheet-- Draft Copy was scanned into [employer] and attached to record. gb Administered Medications: 03:41 Drug: NS 0.9% 1000 ml [sodium chloride 0.9 % intravenous solution] Route: IV; Rate: af2 bolus; Site: left antecubital; 07:34 Follow up: IV Status: Completed infusion ck1 03:42 Drug: Ondansetron 4 mg [ondansetron HCl 2 mg/mL intravenous solution (2 mL)] Route: af2 IVP; Site: left antecubital; 03:42 Drug: morphine 4 mg [morphine 4 mg/mL intravenous cartridge (1 mL)] Route: IVP; Site: af2 left antecubital; 07:47 Drug: Tamsulosin 0.4 mg [tamsulosin 0.4 mg capsule (1 caps)] Route: PO; ck1 07:47 Drug: oxyCODONE-acetaminophen 4 pack 1 packets [oxycodone-acetaminophen 5 mg-325 mg ck1 tablet (1 tabs)] {Co-Signature: mlb1 (Gaetano Merritt RN).} Route: PO; Signatures: Dispatcher [employer] EDArti Roman, Reg Reg gb Oanh Ramirez,RN RN ck1 Dale Bravo DO DO mm11 Bharati Gong [facility] Shoshana UribeRN RN af2 Gaetano Merritt RN mlb1 The chart was reviewed and I authenticate all verbal orders and agree with the evaluation and treatment provided.Attachments: 04:35 [facility] Payment Agreement [facility] 14:36 T-Sheet-- Draft Copy Chart Complete MTDD
== END 2016-07-16 07:56 | disposition home or self-care (01) ==
LOC: M ED 03:12
DX: N20.1 Calculus of ureter (principal)
CPT/HCPCS: 36415; 74177; 80048; 80076; 81001; 82150; 83690; 85025; 87086; 96361; 96374; 96375; 99284; J2405; Q9967

== ENCOUNTER 2016-08-19 18:04 | Emergency (ER) | payer BC ==
[2016-08-19] MEDS ORDERED: METHOCARBAMOL 1,000 MG/10 ML VIAL (J2800) As Ordered ONE (20:00)
[2016-08-19] MEDS ORDERED: KETOROLAC 30 MG/ML VIAL (J1885) As Ordered ONE (20:00)
[2016-08-19 20:24] LABS: BASO % 0.3 % (0.0-1.0); EOS % 0.1 % (0.0-3.0); LARGE UNSTAINED CELL # 0.2 K/mm3 (0.0-0.4); LYMPH # 0.8 K/mm3 (1.5-4.5); LYMPH % 7.1 % (24.0-44.0); MEAN CORPUSCULAR HEMOGLOBIN 29.1 pg (27.0-33.0); MEAN CORPUSCULAR HGB CONC 33.8 g/dl (32.0-36.5); MEAN CORPUSCULAR VOLUME 86.3 fl (80.0-96.0); MONO # 0.4 K/mm3 (0.0-0.8); MONO % 3.5 % (0.0-5.0); NEUTROPHILS # 9.8 K/mm3 (1.8-7.7); PLATELET COUNT, AUTOMATED 301 k/mm3 (150-450); RED CELL DISTRIBUTION WIDTH 12.3 % (11.5-14.5); WHITE BLOOD COUNT 11.2 K/mm3 (4.0-10.0)
[2016-08-19 20:49] LABS: CALCIUM LEVEL 9.2 MG/DL (8.5-10.1); CREATININE FOR GFR 1.69 MG/DL (0.70-1.30); GLOMERULAR FILTRATION RATE 50.3 (>60); POTASSIUM SERUM 4.1 MEQ/L (3.5-5.1)
--- NOTE | 2016-08-19 23:48 | EDDOCDS ---
Nurse's Notes [facility] Name: Thomas Ndiaye Age: 31 yrs Sex: Male : 1985 Arrival Date: 08/19/2016 Time: 18:04 Bed I2 / M2 Private MD: NO PRIMARY PHYSICIAN, . Diagnosis: Calculus of kidney with calculus of ureter Presentation: 08/19 18:14 Presenting complaint: Patient states: Pt presents with lower back pain flank pain dls abdominal pain dx 3 weeks ago with kidney stones unable to void except small amounts. Not able to have normal BM constipated today. Acute neurological deficits are not present. Mechanism of Injury: No Mechanism of Injury. Adult Sepsis Screening: Accepted Exclusions- The patient does not have new or worsening altered mentation. Patient's respiratory rate is less than 22. Systolic blood pressure is greater than 100. Patient has a qSOFA score of 0- Negative Sepsis Screen. Suicide/Homicide risk assessment- the patient denies having any suicidal and/or homicidal ideations and does not present with any other emotional, behavioral or mental health complaints. Status: Patient is not a service car driver or dependent. Transition of care: patient was not received from another setting of care. 18:14 Acuity: KHUSHBU Level 3 dls 18:14 Method Of Arrival: Wheelchair dls Triage Assessment: 18:18 General: Appears distressed, uncomfortable, well developed, Behavior is anxious. Pain: dls Pain currently is 10 out of 10 on a pain scale. HIV screening NA for this visit Offered previously. Historical: - Allergies: no known allergies; - Home Meds: 1. Percocet 5-325 mg Oral tab 1 tab as needed 2. Flomax 0.4 mg Oral cp24 1 cap once daily - PMHx: Kidney stones; - PSHx: none; - Social history: Smoking status: Patient/guardian denies using No barriers to communication noted, The patient speaks fluent Ethiopian. - Family history: Not pertinent. - : The pt / caregiver states he / she is not on anticoagulants. Home medication list is obtained from the patient. - Exposure Risk Screening:: None identified. Screenin:14 Screening information is obtained from the patient. Fall risk: No risks identified. jjr Assistance ADL's: requires no assistance with activities of daily living. Abuse/DV Screen: The patient / caregiver reports he/she is: not in a situation that causes fear, pain or injury. Nutritional screening: No deficits noted. Advance Directives: There is no active DNR order. home support is adequate. Assessment: 20:13 General: Appears uncomfortable, well nourished, well groomed, Behavior is appropriate jjr for age. Pain: Location: low back area, right lower quadrant and left lower quadrant Noted to be moaning. Neurological: No deficits noted. Respiratory: Airway is patent Respiratory effort is even, unlabored, Respiratory pattern is regular. GI: Reports lower abdominal pain, nausea. Derm: Skin is dry, Skin is pale, Skin temperature is warm. Musculoskeletal: Reports pain in low back area. 20:33 General: Robaxin infusion complete. Pt reports no significant change in symptoms. "I ld5 feel a little bit better but not much." Awaiting CT. Will continue to monitor. 21:47 General: Pt sleeping. After family member stated his name several times and touched his ld5 shoulder, pt awoke. When asked about his pain, pt states "I'm still in a lot of pain. It's better but it still hurts a lot." Reports 5/10 "kidney and stomach" pain. Provider aware. Will continue to monitor. 22:08 General: Appears in no apparent distress, uncomfortable, Behavior is appropriate for dsf age, cooperative. Pain: Pain currently is 5 out of 10 on a pain scale. Neurological: Level of Consciousness is awake, alert. Cardiovascular: Capillary refill < 3 seconds. Respiratory: Airway is patent Respiratory effort is even, unlabored, Respiratory pattern is regular, symmetrical. Derm: Skin is dry, Skin is pale, Skin temperature is warm. 23:12 General: Appears in no apparent distress, uncomfortable, Behavior is appropriate for dsf age, cooperative. Neurological: Level of Consciousness is awake, alert. Cardiovascular: Capillary refill < 3 seconds. Respiratory: Airway is patent Respiratory effort is even, unlabored, Respiratory pattern is regular, symmetrical. Derm: Skin is dry, Skin is pale, Skin temperature is warm. 23:46 Adult Sepsis Screening: The patient does not have new or worsening altered mentation. dsf Patient's respiratory rate is less than 22. Systolic blood pressure is greater than 100. Patient has a qSOFA score of 0- Negative Sepsis Screen. General: Appears in no apparent distress, Behavior is appropriate for age, cooperative. Pain: Pain currently is 4 out of 10 on a pain scale. Respiratory: Airway is patent Respiratory effort is even, unlabored, Respiratory pattern is regular, symmetrical. Derm: Skin is dry, Skin is pale, Skin temperature is warm. Vital Signs: 18:06 BP 158 / 100; Pulse 73; Resp 18; Temp 98(O); Pulse Ox 99% on R/A; Weight 77.11 kg (R); ct3 Height 5 ft. 7 in. (170.18 cm) (R); Pain 10/10; 18:06 Body Mass Index 26.63 (77.11 kg, 170.18 cm) ct3 Vitals: 18:13 Log In Time: August 19, 2016 at 18:03. RN notified that patient meets Red Flag ct3 criteria. ED Course: 18:06 Patient visited by Alana Leavitt PCA. ct3 18:06 NO PRIMARY PHYSICIAN, . is Private Physician. ct3 18:06 Patient moved to Waiting ct3 18:13 Patient moved to Pre RCE kcs 18:17 Triage Initiated dls 19:30 Patient moved to Triage 1 ko2 19:36 Patient visited by Francisco Newberry PCA. kb5 19:46 Marko Rouse PA is PHCP. btw 19:46 Doe Gonzales DO is Attending Physician. btw 19:46 Patient visited by Marko Rouse PA. btw 19:57 Cherelle Gomze,RN is Primary Nurse. ko2 19:57 Daysi Hodges, KEKE is Primary Nurse. ko2 19:57 Patient moved to I2 / M2 ko2 20:12 BMP Sent. jjr 20:12 CBC with Diff Sent. jjr 20:14 Patient visited by Cherelle Magana, KEKE. jjr 20:14 The patient / caregiver is instructed regarding the plan of care and ED course. jjr 20:14 Inserted saline lock: 20 gauge in right antecubital area and blood collected. Labs jjr drawn. (by ED staff). Sent per order to lab. 20:33 Patient visited by Frannie Jansen,KEKE. ld5 21:49 Patient visited by Frannie Jansen,KEKE. ld5 22:07 Urine Culture Sent. dsf 22:07 Urinalysis Sent. dsf 22:08 Patient visited by Justine Richards RN. dsf 22:25 [facility] Payment Agreement was scanned into [employer] and attached to record. gjb 23:12 Patient visited by Justine Richards RN. dsf 23:26 Enrique Loyola is Referral Physician. btw 23:46 Discontinued lock intact, bleeding controlled, pressure dressing applied, No dsf redness/swelling at site. No procedures done that require assistance. Administered Medications: 20:13 Drug: ketorolac 30 mg [ketorolac 30 mg/mL (1 mL) injection solution (1 mL)] Route: IVP; ld5 Site: right antecubital; 20:32 Follow up: Response: No significant change. ld5 20:13 Drug: Robaxin 1 grams [Robaxin 100 mg/mL injection solution] Route: IVPB; Rate: 200 ld5 mL/hr; Infused Over: 15 mins; Site: right antecubital; 20:32 Follow up: IV Status: Completed infusion; IV Intake: 50ml ld5 22:07 Drug: NS 0.9% 1000 ml [sodium chloride 0.9 % injection solution] Route: IV; Rate: dsf bolus; Site: right antecubital; Intake: 20:32 IV: 50.00ml; Total: 50.00ml. ld5 Order Results: Lab Order: CBC with Diff; SPEC'M 08/19/16 20:10 Test: WHITE BLOOD COUNT; Value: 11.2; Range: 4.0-10.0; Abnormal: Above high normal; Units: K/mm3; Status: F Test: RED BLOOD COUNT; Value: 5.01; Range: 4.30-6.10; Units: M/mm3; Status: F Test: HEMOGLOBIN; Value: 14.6; Range: 14.0-18.0; Units: g/dl; Status: F Test: HEMATOCRIT; Value: 43.2; Range: 42.0-52.0; Units: %; Status: F Test: MEAN CORPUSCULAR VOLUME; Value: 86.3; Range: 80.0-96.0; Units: fl; Status: F Test: MEAN CORPUSCULAR HEMOGLOBIN; Value: 29.1; Range: 27.0-33.0; Units: pg; Status: F Test: MEAN CORPUSCULAR HGB CONC; Value: 33.8; Range: 32.0-36.5; Units: g/dl; Status: F Test: RED CELL DISTRIBUTION WIDTH; Value: 12.3; Range: 11.5-14.5; Units: %; Status: F Test: PLATELET COUNT, AUTOMATED; Value: 301; Range: 150-450; Units: k/mm3; Status: F Test: NEUTROPHILS %; Value: 87.0; Range: 36.0-66.0; Abnormal: Above high normal; Units: %; Status: F Test: LYMPH %; Value: 7.1; Range: 24.0-44.0; Abnormal: Below low normal; Units: %; Status: F Test: MONO %; Value: 3.5; Range: 0.0-5.0; Units: %; Status: F Test: EOS %; Value: 0.1; Range: 0.0-3.0; Units: %; Status: F Test: BASO %; Value: 0.3; Range: 0.0-1.0; Units: %; Status: F Test: LARGE UNSTAINED CELL %; Value: 2.0; Range: 0.0-4.0; Units: %; Status: F Test: NEUTROPHILS #; Value: 9.8; Range: 1.8-7.7; Abnormal: Above high normal; Units: K/mm3; Status: F Test: LYMPH #; Value: 0.8; Range: 1.5-4.5; Abnormal: Below low normal; Units: K/mm3; Status: F Test: MONO #; Value: 0.4; Range: 0.0-0.8; Units: K/mm3; Status: F Test: EOS #; Value: 0.0; Range: 0.0-0.50; Units: K/mm3; Status: F Test: BASO #; Value: 0.0; Range: 0.0-0.2; Units: K/mm3; Status: F Test: LARGE UNSTAINED CELL #; Value: 0.2; Range: 0.0-0.4; Units: K/mm3; Status: F Lab Order: [facility]; SPEC'M 08/19/16 20:10 Test: GLUCOSE, FASTING; Value: 121; Range: 70-105; Abnormal: Above high normal; Units: MG/DL; Status: F Test: BLOOD UREA NITROGEN; Value: 19; Range: 7-18; Abnormal: Above high normal; Units: MG/DL; Status: F Test: CREATININE FOR GFR; Value: 1.69; Range: 0.70-1.30; Abnormal: Above high normal; Units: MG/DL; Status: F Test: GLOMERULAR FILTRATION RATE; Value: 50.3; Range: >60; Abnormal: Below low normal; Status: F Test: SODIUM LEVEL; Value: 137; Range: 136-145; Units: MEQ/L; Status: F Test: POTASSIUM SERUM; Value: 4.1; Range: 3.5-5.1; Units: MEQ/L; Status: F Test: CHLORIDE LEVEL; Value: 101; Range: 98-107; Units: MEQ/L; Status: F Test: CARBON DIOXIDE LEVEL; Value: 27; Range: 21-32; Units: MEQ/L; Status: F Test: ANION GAP; Value: 9; Range: 8-16; Units: MEQ/L; Status: F Test: CALCIUM LEVEL; Value: 9.2; Range: 8.5-10.1; Units: MG/DL; Status: F Test Note: ; Units are mL/min/1.73 m2 Chronic Kidney Disease Staging per NKF: Stage I & II GFR >=60 Normal to Mildly Decreased Stage III GFR 30-59 Moderately Decreased Stage IV GFR 15-29 Severely Decreased Stage V GFR <15 Very Little GFR Left ESRD GFR <15 on ASSISTANT PROFESSOR OF PHILOSOPHY Lab Order: Urinalysis; SPEC'M 08/19/16 22:06 Test: APPEARANCE, URINE; Value: CLEAR; Range: CLEAR; Status: F Test: COLOR, URINE; Value: YELLOW; Range: YELLOW; Status: F Test: PH,URINE; Value: 5.0; Range: 5.0-9.0; Units: UNITS; Status: F Test: SPECIFIC GRAVITY URINE AUTO; Value: 1.021; Range: 1.002-1.035; Status: F Test: PROTEIN, URINE AUTO; Value: NEGATIVE; Range: NEGATIVE; Units: mg/dL; Status: F Test: GLUCOSE, URINE (UA) AUTO; Value: NEGATIVE; Range: NEGATIVE; Units: mg/dL; Status: F Test: KETONE, URINE AUTO; Value: 2+; Range: NEGATIVE; Abnormal: Above high normal; Units: mg/dL; Status: F Test: UROBILINOGEN, URINE AUTO; Value: 0.2; Range: 0.0-2.0; Units: mg/dL; Status: F Test: BILIRUBIN, URINE AUTO; Value: NEGATIVE; Range: NEGATIVE; Status: F Test: NITRITE, URINE AUTO; Value: NEGATIVE; Range: NEGATIVE; Status: F Test: LEUKOCYTE ESTERASE, URINE AUTO; Value: NEGATIVE; Range: NEGATIVE; Status: F Test: BLOOD, URINE BLOOD; Value: 2+; Range: NEGATIVE; Abnormal: Above high normal; Status: F Test: WBC, URINE AUTO; Value: 3; Range: 0-3; Units: /HPF; Status: F Test: RBC, URINE AUTO; Value: 19; Range: 0-3; Abnormal: Above high normal; Units: /HPF; Status: F Test: BACTERIA, URINE AUTO; Value: NEGATIVE; Range: NEGATIVE; Status: F Test: SQUAMOUS EPITHELIAL CELL UR AU; Value: 0; Range: 0-6; Units: /HPF; Status: F Test: MUCUS, URINE; Value: SMALL; Range: NEGATIVE; Status: F Test: HYALINE CAST, URINE AUTO; Value: 0; Range: 0-1; Units: /LPF; Status: F Outcome: 23:27 Discharge ordered by Provider. btw 23:46 Discharge Assessment: Patient awake, alert and oriented x 3. No cognitive and/or dsf functional deficits noted. Patient verbalized understanding of disposition instructions. patient administered narcotics - no. The following High Risk Discharge criteria are identified: None. Discharged to home ambulatory. Condition: stable. Discharge instructions given to patient, Instructed on discharge instructions, follow up and referral plans. medication usage, Demonstrated understanding of instructions, medications, Pt was receptive of discharge instructions/ teaching. Prescriptions given X 1. CT Study completed. Property sent home with patient. 23:48 Patient left the ED. dsf Signatures: Mariana Hines RN RN kcs Scott, Debra, RN RN dls Bancroft, Kristopher, CONSUMER SERVICES CONSULTANT CONSUMER SERVICES CONSULTANT kb5 Cherelle Magana RN RN jjr Wolfenden, Brandon, PA PA btw Frannie Jansen RN RN ld5 Alana Leavitt, CONSUMER SERVICES CONSULTANT CONSUMER SERVICES CONSULTANT ct3 Justine Richards RN RN dsf Jade Lua, RN RN mk4 Tawny Gomez,RN RN reva2 Mindy Pritchard MANNYD
--- NOTE | 2016-08-19 23:48 | EDDOCDS ---
Physician Documentation [facility] Name: Thomas Ndiaye Age: 31 yrs Sex: Male : 1985 Arrival Date: 08/19/2016 Time: 18:04 Bed I2 / M2 Private MD: NO PRIMARY PHYSICIAN, . Disposition: 08/19/16 23:27 Discharged to Home/Self Care. Impression: Calculus of kidney with calculus of ureter. - Condition is Stable. - Discharge Instructions: Ureteral Colic, [id number], Kidney Stones, [id number]. - Prescriptions for etodolac 200 mg Oral Capsule - take 1 capsule by ORAL route 3 times per day; 30 capsule. - Medication Reconciliation, Local Pharmacy Hours form. - Follow up: Enrique Loyola; When: Call to arrange an appointment; Reason: Further diagnostic work-up, Recheck today's complaints, Continuance of care. - Problem is new. - Symptoms have improved. - Notes: PLEASE BE CERTAIN THAT YOU READ AND FOLLOW YOUR DISCHARGE INSTRUCTIONS CAREFULLY. Historical: - Allergies: no known allergies; - Home Meds: 1. Percocet 5-325 mg Oral tab 1 tab as needed 2. Flomax 0.4 mg Oral cp24 1 cap once daily - PMHx: Kidney stones; - PSHx: none; - Social history: Smoking status: Patient/guardian denies using No barriers to communication noted, The patient speaks fluent Greenlandic. - Family history: Not pertinent. - : The pt / caregiver states he / she is not on anticoagulants. Home medication list is obtained from the patient. - Exposure Risk Screening:: None identified. Vital Signs: 08/19 18:06 BP 158 / 100; Pulse 73; Resp 18; Temp 98(O); Pulse Ox 99% on R/A; Weight 77.11 kg / 170 ct3 lbs (R); Height 5 ft. 7 in. (170.18 cm) (R); Pain 10/10; 18:06 Body Mass Index 26.63 (77.11 kg, 170.18 cm) ct3 MDM: 19:56 IV Saline Lock ordered. btw 19:56 ketorolac 30 mg IVP once ordered. btw 19:56 Robaxin 1 grams IVPB at 200 mL/hr once over 15 mins; dilute in 50mL of NS ordered. btw 19:56 CBC with Diff Ordered. EDMS 19:56 BMP Ordered. EDMS 19:57 Urinalysis Ordered. EDMS 19:57 Urine Culture Ordered. EDMS 19:57 CT ABD & PELVIS: No Contrast Ordered. EDMS 21:14 Financial registration complete. gjb 21:47 CBC with Diff Reviewed. btw 21:47 BMP Reviewed. btw 21:51 NS 0.9% 1000 ml IV at bolus once ordered. btw 22:25 [facility] Payment Agreement was scanned into [employer] and attached to record. gjb 22:49 Urinalysis Reviewed. btw Administered Medications: 20:13 Drug: ketorolac 30 mg [ketorolac 30 mg/mL (1 mL) injection solution (1 mL)] Route: IVP; ld5 Site: right antecubital; 20:32 Follow up: Response: No significant change. ld5 20:13 Drug: Robaxin 1 grams [Robaxin 100 mg/mL injection solution] Route: IVPB; Rate: 200 ld5 mL/hr; Infused Over: 15 mins; Site: right antecubital; 20:32 Follow up: IV Status: Completed infusion; IV Intake: 50ml ld5 22:07 Drug: NS 0.9% 1000 ml [sodium chloride 0.9 % injection solution] Route: IV; Rate: dsf bolus; Site: right antecubital; Signatures: Dispatcher [facility] Miranda Monsivais, RN Marko Campa PA PA btw Fuller, Desiree, RN RN dsf King, Margaret, RN RN mk4 Beck, Gabriela gjb Dickerson, Laura RN ld5 The chart was reviewed and I authenticate all verbal orders and agree with the evaluation and treatment provided.Attachments: 22:25 [facility] Payment Agreement gjb MTDD
--- NOTE | 2016-08-21 09:23 | REP ---
Clinical: Right-sided pain. Comparison: 07/16/2016. Findings: Moderate right-sided obstructive uropathy including edematous enlargement of the kidney with perinephric stranding as well as hydroureteronephrosis secondary to a 4 mm obstructing calculus in the distal right ureter (images 118 - 119). Left kidney demonstrates few small nonobstructing renal calculi up to 3 mm without perinephric stranding or hydroureteronephrosis. The bladder is unremarkable. The prostate is within normal limits. Liver, spleen, pancreas, gallbladder, and bilateral adrenal glands are normal for noncontrast evaluation. The enteric system is without obstruction or acute inflammatory process and a normal terminal ileum and appendix are identified in the right lower quadrant. Scattered sigmoid diverticula noted without acute diverticulitis. No pelvic fluid or ascites. No adenopathy. No mass lesion. Abdominal aorta without aneurysm. Surrounding musculoskeletal structures are intact. Lung bases are clear. Impression: 1. Moderate right-sided obstructive uropathy with a 4 mm obstructing calculus in the distal right ureter. Few nonobstructing left renal calculi up to 3 mm. 2. Diverticulosis without acute diverticulitis. Signed by Donal Drake MD 08/21/2016 09:14 A
--- NOTE | 2016-08-22 00:49 | EDDOCDS ---
Physician Documentation [facility] Name: Thomas Ndiaye Age: 31 yrs Sex: Male : 1985 Arrival Date: 08/19/2016 Time: 18:04 Bed I2 / M2 Private MD: NO PRIMARY PHYSICIAN, . Disposition: 08/19/16 23:27 Discharged to Home/Self Care. Impression: Calculus of kidney with calculus of ureter. - Condition is Stable. - Discharge Instructions: Ureteral Colic, Siyj-lb-[id number], Kidney Stones, Fvdi-ic-Bziu. - Prescriptions for etodolac 200 mg Oral Capsule - take 1 capsule by ORAL route 3 times per day; 30 capsule. - Medication Reconciliation, Local Pharmacy Hours form. - Follow up: Enrique Loyola; When: Call to arrange an appointment; Reason: Further diagnostic work-up, Recheck today's complaints, Continuance of care. - Problem is new. - Symptoms have improved. - Notes: PLEASE BE CERTAIN THAT YOU READ AND FOLLOW YOUR DISCHARGE INSTRUCTIONS CAREFULLY. Historical: - Allergies: no known allergies; - Home Meds: 1. Percocet 5-325 mg Oral tab 1 tab as needed 2. Flomax 0.4 mg Oral cp24 1 cap once daily - PMHx: Kidney stones; - PSHx: none; - Social history: Smoking status: Patient/guardian denies using No barriers to communication noted, The patient speaks fluent Khmer. - Family history: Not pertinent. - : The pt / caregiver states he / she is not on anticoagulants. Home medication list is obtained from the patient. - Exposure Risk Screening:: None identified. Vital Signs: 08/19 18:06 BP 158 / 100; Pulse 73; Resp 18; Temp 98(O); Pulse Ox 99% on R/A; Weight 77.11 kg / 170 ct3 lbs (R); Height 5 ft. 7 in. (170.18 cm) (R); Pain 10/10; 18:06 Body Mass Index 26.63 (77.11 kg, 170.18 cm) ct3 MDM: 19:56 IV Saline Lock ordered. btw 19:56 ketorolac 30 mg IVP once ordered. btw 19:56 Robaxin 1 grams IVPB at 200 mL/hr once over 15 mins; dilute in 50mL of NS ordered. btw 19:56 CBC with Diff Ordered. EDMS 19:56 BMP Ordered. EDMS 19:57 Urinalysis Ordered. EDMS 19:57 Urine Culture Ordered. EDMS 19:57 CT ABD & PELVIS: No Contrast Ordered. EDMS 21:14 Financial registration complete. gjb 21:47 CBC with Diff Reviewed. btw 21:47 BMP Reviewed. btw 21:51 NS 0.9% 1000 ml IV at bolus once ordered. btw 22:25 [facility] Payment Agreement was scanned into [employer] and attached to record. gjb 22:49 Urinalysis Reviewed. bt 08/20 11:15 T-Sheet-- Draft Copy was scanned into [employer] and attached to record. 15:23 Radiology Report was scanned into [employer] and attached to record. gb Administered Medications: 08/19 20:13 Drug: ketorolac 30 mg [ketorolac 30 mg/mL (1 mL) injection solution (1 mL)] Route: IVP; ld5 Site: right antecubital; 20:32 Follow up: Response: No significant change. ld5 20:13 Drug: Robaxin 1 grams [Robaxin 100 mg/mL injection solution] Route: IVPB; Rate: 200 ld5 mL/hr; Infused Over: 15 mins; Site: right antecubital; 20:32 Follow up: IV Status: Completed infusion; IV Intake: 50ml ld5 22:07 Drug: NS 0.9% 1000 ml [sodium chloride 0.9 % injection solution] Route: IV; Rate: dsf bolus; Site: right antecubital; Signatures: Dispatcher [employer] EDMiranda Palafox RN KEKE dls Arti Hastings, Reg Reg gb Marko Rouse PA PA btw Justine Richards RN RN dsf King, Margaret, RN RN mk4 Beck, Gabriela gjb Dickerson, Laura RN ld5 The chart was reviewed and I authenticate all verbal orders and agree with the evaluation and treatment provided.Attachments: :25 [facility] Payment Agreement [employer] [facility] [employer] [facility] 08/20 11:15 T-Sheet-- Draft Copy gb Chart Complete MTDD
--- NOTE | 2016-08-22 00:49 | EDDOCDS ---
Physician Documentation [facility] Name: Thomas Ndiaye Age: 31 yrs Sex: Male : 1985 Arrival Date: 08/19/2016 Time: 18:04 Bed I2 / M2 Private MD: NO PRIMARY PHYSICIAN, . Disposition: 08/19/16 23:27 Discharged to Home/Self Care. Impression: Calculus of kidney with calculus of ureter. - Condition is Stable. - Discharge Instructions: Ureteral Colic, Ndac-or-Ghhf, Kidney Stones, Gypx-dx-Iquh. - Prescriptions for etodolac 200 mg Oral Capsule - take 1 capsule by ORAL route 3 times per day; 30 capsule. - Medication Reconciliation, Local Pharmacy Hours form. - Follow up: Enrique Loyola; When: Call to arrange an appointment; Reason: Further diagnostic work-up, Recheck today's complaints, Continuance of care. - Problem is new. - Symptoms have improved. - Notes: PLEASE BE CERTAIN THAT YOU READ AND FOLLOW YOUR DISCHARGE INSTRUCTIONS CAREFULLY. Historical: - Allergies: no known allergies; - Home Meds: 1. Percocet 5-325 mg Oral tab 1 tab as needed 2. Flomax 0.4 mg Oral cp24 1 cap once daily - PMHx: Kidney stones; - PSHx: none; - Social history: Smoking status: Patient/guardian denies using No barriers to communication noted, The patient speaks fluent Polish. - Family history: Not pertinent. - : The pt / caregiver states he / she is not on anticoagulants. Home medication list is obtained from the patient. - Exposure Risk Screening:: None identified. Vital Signs: 08/19 18:06 BP 158 / 100; Pulse 73; Resp 18; Temp 98(O); Pulse Ox 99% on R/A; Weight 77.11 kg / 170 ct3 lbs (R); Height 5 ft. 7 in. (170.18 cm) (R); Pain 10/10; 18:06 Body Mass Index 26.63 (77.11 kg, 170.18 cm) ct3 MDM: 19:56 IV Saline Lock ordered. btw 19:56 ketorolac 30 mg IVP once ordered. btw 19:56 Robaxin 1 grams IVPB at 200 mL/hr once over 15 mins; dilute in 50mL of NS ordered. btw 19:56 CBC with Diff Ordered. EDMS 19:56 BMP Ordered. EDMS 19:57 Urinalysis Ordered. EDMS 19:57 Urine Culture Ordered. EDMS 19:57 CT ABD & PELVIS: No Contrast Ordered. EDMS 21:14 Financial registration complete. gjb 21:47 CBC with Diff Reviewed. btw 21:47 BMP Reviewed. btw 21:51 NS 0.9% 1000 ml IV at bolus once ordered. btw 22:25 [facility] Payment Agreement was scanned into [employer] and attached to record. gjb 22:49 Urinalysis Reviewed. bt 08/20 11:15 T-Sheet-- Draft Copy was scanned into [employer] and attached to record. 15:23 Radiology Report was scanned into [employer] and attached to record. gb Administered Medications: 08/19 20:13 Drug: ketorolac 30 mg [ketorolac 30 mg/mL (1 mL) injection solution (1 mL)] Route: IVP; ld5 Site: right antecubital; 20:32 Follow up: Response: No significant change. ld5 20:13 Drug: Robaxin 1 grams [Robaxin 100 mg/mL injection solution] Route: IVPB; Rate: 200 ld5 mL/hr; Infused Over: 15 mins; Site: right antecubital; 20:32 Follow up: IV Status: Completed infusion; IV Intake: 50ml ld5 22:07 Drug: NS 0.9% 1000 ml [sodium chloride 0.9 % injection solution] Route: IV; Rate: dsf bolus; Site: right antecubital; Signatures: Dispatcher MedHo EDMiranda Palafox RN KEKE dls Arti Hastings, Reg Reg gb Marko Rouse PA PA btw Justine Richards RN RN dsf King, Margaret, RN RN mk4 Beck, Gabriela gjb Dickerson, Laura RN ld5 The chart was reviewed and I authenticate all verbal orders and agree with the evaluation and treatment provided.Attachments: :25 [facility] Payment Agreement [facility] 08/20 11:15 T-Sheet-- Draft Copy gb Chart Complete MTDD
--- NOTE | 2016-08-22 00:50 | EDDOCDS ---
Nurse's Notes [facility] Name: Thomas Ndiaye Age: 31 yrs Sex: Male : 1985 Arrival Date: 08/19/2016 Time: 18:04 Bed I2 / M2 Private MD: NO PRIMARY PHYSICIAN, . Diagnosis: Calculus of kidney with calculus of ureter Presentation: 08/19 18:14 Presenting complaint: Patient states: Pt presents with lower back pain flank pain dls abdominal pain dx 3 weeks ago with kidney stones unable to void except small amounts. Not able to have normal BM constipated today. Acute neurological deficits are not present. Mechanism of Injury: No Mechanism of Injury. Adult Sepsis Screening: Accepted Exclusions- The patient does not have new or worsening altered mentation. Patient's respiratory rate is less than 22. Systolic blood pressure is greater than 100. Patient has a qSOFA score of 0- Negative Sepsis Screen. Suicide/Homicide risk assessment- the patient denies having any suicidal and/or homicidal ideations and does not present with any other emotional, behavioral or mental health complaints. Status: Patient is not a personal service representative or dependent. Transition of care: patient was not received from another setting of care. 18:14 Acuity: KHUSHBU Level 3 dls 18:14 Method Of Arrival: Wheelchair dls Triage Assessment: 18:18 General: Appears distressed, uncomfortable, well developed, Behavior is anxious. Pain: dls Pain currently is 10 out of 10 on a pain scale. HIV screening NA for this visit Offered previously. Historical: - Allergies: no known allergies; - Home Meds: 1. Percocet 5-325 mg Oral tab 1 tab as needed 2. Flomax 0.4 mg Oral cp24 1 cap once daily - PMHx: Kidney stones; - PSHx: none; - Social history: Smoking status: Patient/guardian denies using No barriers to communication noted, The patient speaks fluent Sao Tomean. - Family history: Not pertinent. - : The pt / caregiver states he / she is not on anticoagulants. Home medication list is obtained from the patient. - Exposure Risk Screening:: None identified. Screenin:14 Screening information is obtained from the patient. Fall risk: No risks identified. jjr Assistance ADL's: requires no assistance with activities of daily living. Abuse/DV Screen: The patient / caregiver reports he/she is: not in a situation that causes fear, pain or injury. Nutritional screening: No deficits noted. Advance Directives: There is no active DNR order. home support is adequate. Assessment: 20:13 General: Appears uncomfortable, well nourished, well groomed, Behavior is appropriate jjr for age. Pain: Location: low back area, right lower quadrant and left lower quadrant Noted to be moaning. Neurological: No deficits noted. Respiratory: Airway is patent Respiratory effort is even, unlabored, Respiratory pattern is regular. GI: Reports lower abdominal pain, nausea. Derm: Skin is dry, Skin is pale, Skin temperature is warm. Musculoskeletal: Reports pain in low back area. 20:33 General: Robaxin infusion complete. Pt reports no significant change in symptoms. "I ld5 feel a little bit better but not much." Awaiting CT. Will continue to monitor. 21:47 General: Pt sleeping. After family member stated his name several times and touched his ld5 shoulder, pt awoke. When asked about his pain, pt states "I'm still in a lot of pain. It's better but it still hurts a lot." Reports 5/10 "kidney and stomach" pain. Provider aware. Will continue to monitor. 22:08 General: Appears in no apparent distress, uncomfortable, Behavior is appropriate for dsf age, cooperative. Pain: Pain currently is 5 out of 10 on a pain scale. Neurological: Level of Consciousness is awake, alert. Cardiovascular: Capillary refill < 3 seconds. Respiratory: Airway is patent Respiratory effort is even, unlabored, Respiratory pattern is regular, symmetrical. Derm: Skin is dry, Skin is pale, Skin temperature is warm. 23:12 General: Appears in no apparent distress, uncomfortable, Behavior is appropriate for dsf age, cooperative. Neurological: Level of Consciousness is awake, alert. Cardiovascular: Capillary refill < 3 seconds. Respiratory: Airway is patent Respiratory effort is even, unlabored, Respiratory pattern is regular, symmetrical. Derm: Skin is dry, Skin is pale, Skin temperature is warm. 23:46 Adult Sepsis Screening: The patient does not have new or worsening altered mentation. dsf Patient's respiratory rate is less than 22. Systolic blood pressure is greater than 100. Patient has a qSOFA score of 0- Negative Sepsis Screen. General: Appears in no apparent distress, Behavior is appropriate for age, cooperative. Pain: Pain currently is 4 out of 10 on a pain scale. Respiratory: Airway is patent Respiratory effort is even, unlabored, Respiratory pattern is regular, symmetrical. Derm: Skin is dry, Skin is pale, Skin temperature is warm. Vital Signs: 18:06 BP 158 / 100; Pulse 73; Resp 18; Temp 98(O); Pulse Ox 99% on R/A; Weight 77.11 kg (R); ct3 Height 5 ft. 7 in. (170.18 cm) (R); Pain 10/10; 18:06 Body Mass Index 26.63 (77.11 kg, 170.18 cm) ct3 Vitals: 18:13 Log In Time: August 19, 2016 at 18:03. RN notified that patient meets Red Flag ct3 criteria. ED Course: 18:06 Patient visited by Alana Leavitt PCA. ct3 18:06 NO PRIMARY PHYSICIAN, . is Private Physician. ct3 18:06 Patient moved to Waiting ct3 18:13 Patient moved to Pre RCE kcs 18:17 Triage Initiated dls 19:30 Patient moved to Triage 1 ko2 19:36 Patient visited by Francisco Newberry PCA. kb5 19:46 Marko Rouse PA is PHCP. btw 19:46 Doe Gonzales DO is Attending Physician. btw 19:46 Patient visited by Marko Rouse PA. btw 19:57 Cherelle Gomez,RN is Primary Nurse. ko2 19:57 Daysi Hodges, KEKE is Primary Nurse. ko2 19:57 Patient moved to I2 / M2 ko2 20:12 BMP Sent. jjr 20:12 CBC with Diff Sent. jjr 20:14 Patient visited by Cherelle Magana, KEKE. jjr 20:14 The patient / caregiver is instructed regarding the plan of care and ED course. jjr 20:14 Inserted saline lock: 20 gauge in right antecubital area and blood collected. Labs jjr drawn. (by ED staff). Sent per order to lab. 20:33 Patient visited by Frannie Jansen,KEKE. ld5 21:49 Patient visited by Frannie Jansen,KEKE. ld5 22:07 Urine Culture Sent. dsf 22:07 Urinalysis Sent. dsf 22:08 Patient visited by Justine Richards RN. dsf 22:25 [facility] Payment Agreement was scanned into [employer] and attached to record. gjb 23:12 Patient visited by Justine Richards RN. dsf 23:26 Enrique Loyola is Referral Physician. btw 23:46 Discontinued lock intact, bleeding controlled, pressure dressing applied, No dsf redness/swelling at site. No procedures done that require assistance. 08/20 11:15 T-Sheet-- Draft Copy was scanned into [employer] and attached to record. gb 15:23 Radiology Report was scanned into [employer] and attached to record. gb 08/21 09:33 CT ABD & PELVIS: No Contrast Returned. EDMS Administered Medications: 08/19 20:13 Drug: ketorolac 30 mg [ketorolac 30 mg/mL (1 mL) injection solution (1 mL)] Route: IVP; ld5 Site: right antecubital; 20:32 Follow up: Response: No significant change. ld5 20:13 Drug: Robaxin 1 grams [Robaxin 100 mg/mL injection solution] Route: IVPB; Rate: 200 ld5 mL/hr; Infused Over: 15 mins; Site: right antecubital; 20:32 Follow up: IV Status: Completed infusion; IV Intake: 50ml ld5 22:07 Drug: NS 0.9% 1000 ml [sodium chloride 0.9 % injection solution] Route: IV; Rate: dsf bolus; Site: right antecubital; Intake: 20:32 IV: 50.00ml; Total: 50.00ml. ld5 Order Results: Lab Order: CBC with Diff; SPEC'M 08/19/16 20:10 Test: WHITE BLOOD COUNT; Value: 11.2; Range: 4.0-10.0; Abnormal: Above high normal; Units: K/mm3; Status: F Test: RED BLOOD COUNT; Value: 5.01; Range: 4.30-6.10; Units: M/mm3; Status: F Test: HEMOGLOBIN; Value: 14.6; Range: 14.0-18.0; Units: g/dl; Status: F Test: HEMATOCRIT; Value: 43.2; Range: 42.0-52.0; Units: %; Status: F Test: MEAN CORPUSCULAR VOLUME; Value: 86.3; Range: 80.0-96.0; Units: fl; Status: F Test: MEAN CORPUSCULAR HEMOGLOBIN; Value: 29.1; Range: 27.0-33.0; Units: pg; Status: F Test: MEAN CORPUSCULAR HGB CONC; Value: 33.8; Range: 32.0-36.5; Units: g/dl; Status: F Test: RED CELL DISTRIBUTION WIDTH; Value: 12.3; Range: 11.5-14.5; Units: %; Status: F Test: PLATELET COUNT, AUTOMATED; Value: 301; Range: 150-450; Units: k/mm3; Status: F Test: NEUTROPHILS %; Value: 87.0; Range: 36.0-66.0; Abnormal: Above high normal; Units: %; Status: F Test: LYMPH %; Value: 7.1; Range: 24.0-44.0; Abnormal: Below low normal; Units: %; Status: F Test: MONO %; Value: 3.5; Range: 0.0-5.0; Units: %; Status: F Test: EOS %; Value: 0.1; Range: 0.0-3.0; Units: %; Status: F Test: BASO %; Value: 0.3; Range: 0.0-1.0; Units: %; Status: F Test: LARGE UNSTAINED CELL %; Value: 2.0; Range: 0.0-4.0; Units: %; Status: F Test: NEUTROPHILS #; Value: 9.8; Range: 1.8-7.7; Abnormal: Above high normal; Units: K/mm3; Status: F Test: LYMPH #; Value: 0.8; Range: 1.5-4.5; Abnormal: Below low normal; Units: K/mm3; Status: F Test: MONO #; Value: 0.4; Range: 0.0-0.8; Units: K/mm3; Status: F Test: EOS #; Value: 0.0; Range: 0.0-0.50; Units: K/mm3; Status: F Test: BASO #; Value: 0.0; Range: 0.0-0.2; Units: K/mm3; Status: F Test: LARGE UNSTAINED CELL #; Value: 0.2; Range: 0.0-0.4; Units: K/mm3; Status: F Lab Order: BMP; 08/19/16 20:10 Test: GLUCOSE, FASTING; Value: 121; Range: 70-105; Abnormal: Above high normal; Units: MG/DL; Status: F Test: BLOOD UREA NITROGEN; Value: 19; Range: 7-18; Abnormal: Above high normal; Units: MG/DL; Status: F Test: CREATININE FOR GFR; Value: 1.69; Range: 0.70-1.30; Abnormal: Above high normal; Units: MG/DL; Status: F Test: GLOMERULAR FILTRATION RATE; Value: 50.3; Range: >60; Abnormal: Below low normal; Status: F Test: SODIUM LEVEL; Value: 137; Range: 136-145; Units: MEQ/L; Status: F Test: POTASSIUM SERUM; Value: 4.1; Range: 3.5-5.1; Units: MEQ/L; Status: F Test: CHLORIDE LEVEL; Value: 101; Range: 98-107; Units: MEQ/L; Status: F Test: CARBON DIOXIDE LEVEL; Value: 27; Range: 21-32; Units: MEQ/L; Status: F Test: ANION GAP; Value: 9; Range: 8-16; Units: MEQ/L; Status: F Test: CALCIUM LEVEL; Value: 9.2; Range: 8.5-10.1; Units: MG/DL; Status: F Test Note: ; Units are mL/min/1.73 m2 Chronic Kidney Disease Staging per NKF: Stage I & II GFR >=60 Normal to Mildly Decreased Stage III GFR 30-59 Moderately Decreased Stage IV GFR 15-29 Severely Decreased Stage V GFR <15 Very Little GFR Left ESRD GFR <15 on BOARD SETTER Lab Order: Urinalysis; 08/19/16 22:06 Test: APPEARANCE, URINE; Value: CLEAR; Range: CLEAR; Status: F Test: COLOR, URINE; Value: YELLOW; Range: YELLOW; Status: F Test: PH,URINE; Value: 5.0; Range: 5.0-9.0; Units: UNITS; Status: F Test: SPECIFIC GRAVITY URINE AUTO; Value: 1.021; Range: 1.002-1.035; Status: F Test: PROTEIN, URINE AUTO; Value: NEGATIVE; Range: NEGATIVE; Units: mg/dL; Status: F Test: GLUCOSE, URINE (UA) AUTO; Value: NEGATIVE; Range: NEGATIVE; Units: mg/dL; Status: F Test: KETONE, URINE AUTO; Value: 2+; Range: NEGATIVE; Abnormal: Above high normal; Units: mg/dL; Status: F Test: UROBILINOGEN, URINE AUTO; Value: 0.2; Range: 0.0-2.0; Units: mg/dL; Status: F Test: BILIRUBIN, URINE AUTO; Value: NEGATIVE; Range: NEGATIVE; Status: F Test: NITRITE, URINE AUTO; Value: NEGATIVE; Range: NEGATIVE; Status: F Test: LEUKOCYTE ESTERASE, URINE AUTO; Value: NEGATIVE; Range: NEGATIVE; Status: F Test: BLOOD, URINE BLOOD; Value: 2+; Range: NEGATIVE; Abnormal: Above high normal; Status: F Test: WBC, URINE AUTO; Value: 3; Range: 0-3; Units: /HPF; Status: F Test: RBC, URINE AUTO; Value: 19; Range: 0-3; Abnormal: Above high normal; Units: /HPF; Status: F Test: BACTERIA, URINE AUTO; Value: NEGATIVE; Range: NEGATIVE; Status: F Test: SQUAMOUS EPITHELIAL CELL UR AU; Value: 0; Range: 0-6; Units: /HPF; Status: F Test: MUCUS, URINE; Value: SMALL; Range: NEGATIVE; Status: F Test: HYALINE CAST, URINE AUTO; Value: 0; Range: 0-1; Units: /LPF; Status: F Lab Order: Urine Culture; SPEC'M 08/19/16 22:06 Test: URINE CULTURE; Value: <EXTERNAL COMMENT eCWMed> FULL REPORT IN LAB NOTES (eCW and Medent).; Status: F Test: URINE CULTURE; Value: URINE CULTURE RESULT NO GROWTH; Status: F Radiology Order: CT ABD & PELVIS: No Contrast Test: CT ABD & PELVIS: No Contrast REASON FOR EXAMINATION: ? stone; ? constipation; Clinical: Right-sided pain.; ; Comparison: 07/16/2016.; ; Findings:; Moderate right-sided obstructive uropathy including edematous enlargement of the; kidney with perinephric stranding as well as hydroureteronephrosis secondary to a; 4 mm obstructing calculus in the distal right ureter (images 118 - 119). Left; kidney demonstrates few small nonobstructing renal calculi up to 3 mm without; perinephric stranding or hydroureteronephrosis. The bladder is unremarkable.; The prostate is within normal limits.; ; Liver, spleen, pancreas, gallbladder, and bilateral adrenal glands are normal for; noncontrast evaluation. The enteric system is without obstruction or acute; inflammatory process and a normal terminal ileum and appendix are identified in; the right lower quadrant. Scattered sigmoid diverticula noted without acute; diverticulitis. No pelvic fluid or ascites. No adenopathy. No mass lesion.; Abdominal aorta without aneurysm. Surrounding musculoskeletal structures are; intact. Lung bases are clear.; ; Impression:; 1. Moderate right-sided obstructive uropathy with a 4 mm obstructing calculus in; the distal right ureter. Few nonobstructing left renal calculi up to 3 mm.; 2. Diverticulosis without acute diverticulitis.; ; ; Signed by; Donal Drake MD 08/21/2016 09:14 A; Outcome: 23:27 Discharge ordered by Provider. btw 23:46 Discharge Assessment: Patient awake, alert and oriented x 3. No cognitive and/or dsf functional deficits noted. Patient verbalized understanding of disposition instructions. patient administered narcotics - no. The following High Risk Discharge criteria are identified: None. Discharged to home ambulatory. Condition: stable. Discharge instructions given to patient, Instructed on discharge instructions, follow up and referral plans. medication usage, Demonstrated understanding of instructions, medications, Pt was receptive of discharge instructions/ teaching. Prescriptions given X 1. CT Study completed. Property sent home with patient. 23:48 Patient left the ED. dsf Signatures: Dispatcher [employer] EDMS Mariana Hines RN RN kcs Scott, Debra, RN RN dls Barnhardt, Arti, Reg Reg gb Coni, Francisco, LAB AID LAB AID kb5 Cherelle Magana RN RN jjr Wolfenden, Brandon, PA PA btw Frannie Jansen RN RN ld5 Leavitt, Alana, LAB AID LAB AID ct3 Justine Richards RN RN dsf Jade Lua RN RN doreen4 Tawny Gomez RN RN ko2 Pritchard, Mindy gjb Chart Complete MTDD
== END 2016-08-19 23:48 | disposition home or self-care (01) ==
LOC: M ED 18:04
DX: N20.1 Calculus of ureter (principal); Z87.442 Personal history of urinary calculi; Z79.899 Other long term (current) drug therapy; F17.210 Nicotine dependence, cigarettes, uncomplicated
CPT/HCPCS: 36415; 74176; 80048; 81001; 85025; 87086; 96365; 96375; 99284; J1885; J2800

== ENCOUNTER → 2018-01-03 | Outpatient (CLI) | payer BC ==
[2018-01-03 17:50] LABS: BASO # 0.1 10^3/uL (0.0-0.2); BASO % 0.6 % (0.0-1.0); EOS # 0.1 10^3/uL (0.0-0.50); EOS % 0.7 % (0.0-3.0); HEMATOCRIT 44.7 % (42.0-52.0); HEMOGLOBIN 14.2 g/dl (13.5-17.5); IMMATURE GRANULOCYTE % 0.4 % (0-3.0); LYMPH # 1.3 10^3/uL (1.5-4.5); LYMPH % 10.6 % (24.0-44.0); MEAN CORPUSCULAR HEMOGLOBIN 28.7 pg (27.0-33.0); MEAN CORPUSCULAR HGB CONC 31.8 g/dl (32.0-36.5); MEAN CORPUSCULAR VOLUME 90.5 fl (80.0-96.0); MONO # 0.9 10^3/uL (0.0-0.8); MONO % 7.5 % (0.0-5.0); NEUTROPHILS # 9.9 10^3/uL (1.8-7.7); NEUTROPHILS % 80.2 % (36.0-66.0); PLATELET COUNT, AUTOMATED 296 10^3/uL (150-450); RED BLOOD COUNT 4.94 10^6/uL (4.30-6.10); RED CELL DISTRIBUTION WIDTH 12.7 % (11.5-14.5); WHITE BLOOD COUNT 12.3 10^3/uL (4.0-10.0)
[2018-01-07 00:09] LABS: EBV AB TO NUCLEAR ANTIGEN 35.8 U/mL (0.0-17.9)
[2018-01-07 00:09] LABS: EBV VIRAL CAPSID AG IgM <36.0 U/mL (0.0-35.9)
== END ==
LOC: M WUC 11:55
DX: J03.90 Acute tonsillitis, unspecified (principal)
CPT/HCPCS: 86665

== ENCOUNTER 2018-05-25 14:44 | Emergency (ER) | payer BC | END 2018-05-25 15:49 | disposition home or self-care (01) | LOC: M ED 14:44 | DX: M62.830 Muscle spasm of back (principal) | CPT/HCPCS: 99283 ==

== ENCOUNTER 2022-06-23 22:41 | Emergency (ER) | payer BC, MEDICAID, SELFPAY ==
[~2022-06-23] VITALS: Ht 172.7 cm; Wt 78.0 kg
[~2022-06-23 22:41] MED LIST: CYCL-707 PO; PRED20TA PO
[2022-06-24] MEDS ORDERED: NS 1,000 ML IV ONE (07:50)
[2022-06-24] MEDS ORDERED: KETOROLAC 30 MG/ML 1ML VIAL IV ONE (07:50)
[2022-06-24] MEDS ORDERED: AMPICILLIN SOD/SULBACTAM SOD 3 GM in D5W MINI-BAG PLUS 100 ML IV ONE (07:50)
[2022-06-24 09:42] LABS: BASO # 0.1 10^3/uL (0.0-0.2); BASO % 0.5 % (0.0-1.0); EOS # 0.1 10^3/uL (0.0-0.5); EOS % 0.4 % (0.0-3.0); HEMOGLOBIN 12.5 g/dl (13.5-17.5); LYMPH # 1.1 10^3/uL (1.5-5.0); LYMPH % 8.1 % (24.0-44.0); MEAN CORPUSCULAR HEMOGLOBIN 28.4 pg (27.0-33.0); MEAN CORPUSCULAR HGB CONC 32.1 g/dl (32.0-36.5); MEAN CORPUSCULAR VOLUME 88.6 fl (80.0-96.0); MONO # 0.8 10^3/uL (0.0-0.8); MONO % 6.1 % (2.0-8.0); NEUTROPHILS # 11.5 10^3/uL (1.5-8.5); NEUTROPHILS % 84.3 % (36.0-66.0); PLATELET COUNT, AUTOMATED 316 10^3/uL (150-450); WHITE BLOOD COUNT 13.7 10^3/uL (4.0-10.0)
[2022-06-24 10:15] LABS: BLOOD UREA NITROGEN 11 MG/DL (9-23); CALCIUM LEVEL 8.3 MG/DL (8.5-10.1); CARBON DIOXIDE LEVEL 25 MMOL/L (20-31); CHLORIDE LEVEL 103 MMOL/L (98-107); CREATININE FOR GFR 1.02 MG/DL (0.70-1.30); GLOMERULAR FILTRATION RATE > 60.0 (>60); GLUCOSE, FASTING 100 MG/DL (60-100); SODIUM LEVEL 137 MMOL/L (136-145)
[2022-06-24] MEDS ORDERED: AMOX400S PO (10:24)
[2022-06-24 10:44] VITALS: BP 134/88
== END 2022-06-24 10:47 | disposition home or self-care (01) ==
LOC: M ED 22:41
DX: J02.0 Streptococcal pharyngitis (principal); J03.90 Acute tonsillitis, unspecified
CPT/HCPCS: 80048; 85025; 87486; 87581; 87633; 87798; 87880; 96361; 96365; 96375; 99284; J0295; J1100; J1885

== ENCOUNTER 2022-07-18 20:02 | Emergency (ER) | payer MEDICAID ==
[~2022-07-18] VITALS: Ht 172.7 cm; Wt 81.3 kg
[~2022-07-18 20:02] MED LIST changes: +AMOX400S PO
[2022-07-18 21:48] VITALS: BP 130/99
[2022-07-18] MEDS ORDERED: AMOXICILLIN 500 MG CAP PO ONE (22:20)
[2022-07-18] MEDS ORDERED: AMOX400S PO ×2 (22:30→23:01)
[2022-07-18] MEDS ORDERED: AUGMENTIN BID 400MG/5ML SUSP 50ML BTL PO ONE (22:30)
[2022-07-18] MEDS ORDERED: ACETAMINOPHEN/CODEINE 300MG/30MG 12.5ML UDC PO ONE (22:30)
== END 2022-07-18 23:07 | disposition home or self-care (01) ==
LOC: M ED 20:02
DX: J02.0 Streptococcal pharyngitis (principal)

== ENCOUNTER → 2024-03-10 | Outpatient (REF) | payer OTHER ==
[2024-03-10 17:46] LABS: CREATININE, URINE 326.7 MG/DL; MAU/CREAT RATIO 2.4 MCG/MG (0.0-30.0)
[2024-03-11 14:57] LABS: ALBUMIN 4.5 G/DL (3.2-5.2); ALKALINE PHOSPHATASE 72 U/L (46-116); ALT/SGPT 25 U/L (7.0-40); AST/SGOT 13 U/L (<34); BILIRUBIN,TOTAL 1.1 MG/DL (0.3-1.2); BLOOD UREA NITROGEN 13 MG/DL (9-23); CARBON DIOXIDE LEVEL 28 MMOL/L (20-31); CHLORIDE LEVEL 104 MMOL/L (98-107); CHOLESTEROL LEVEL 200 MG/DL (<200); CHOLESTEROL RISK RATIO 5.24 (<5); CREATININE FOR GFR 1.15 MG/DL (0.70-1.30); GLOMERULAR FILTRATION RATE > 60.0 (>60); GLUCOSE, FASTING 92 MG/DL (60-100); HDL CHOLESTEROL 38.1 MG/DL (>40); LDL CHOLESTEROL 143.7 MG/DL (<100); NON-HDL-C 161.9 MG/DL; POTASSIUM SERUM 4.4 MMOL/L (3.5-5.1); SODIUM LEVEL 139 MMOL/L (136-145); TRIGLYCERIDES LEVEL 91 MG/DL (<150)
[2024-03-11 15:01] LABS: THYROID STIMULATING HORMONE 0.865 uIU/ML (0.55-4.78)
[2024-03-11 15:04] LABS: HEMOGLOBIN A1c 5.6 % (4.0-6.0)
== END ==
LOC: M LAB REF 16:12
PROVIDERS: ATTEND Physician Assistant
DX: I10 Essential (primary) hypertension (principal); Z11.9 Encounter for screening for infectious and parasitic diseases, unspecified; E66.9 Obesity, unspecified; E55.9 Vitamin D deficiency, unspecified